=== PATIENT | male | born 1965 | race Caucasian/White ===

== ENCOUNTER 2019-01-22 11:07 | Inpatient (IN) ==
--- NOTE | 2019-01-04 12:54 | PAT Medication Instructions ---
Medication Instructions Date of Service January 04, 2019 Home Medications aspirin 81 mg PO QAM baclofen 20 mg PO DAILY NEEDED duloxetine [Cymbalta] 60 mg PO QAM fenofibrate micronized 200 mg PO QAM ibuprofen 200 mg PO QID NEEDED olmesartan-hydrochlorothiazide 1 tab PO QAM omeprazole magnesium [Prilosec OTC] 40 mg PO QAM pravastatin 40 mg PO QAM sumatriptan succinate [Imitrex] 50 mg PO NEEDED tramadol 100 mg PO Q6H NEEDED ASK your surgeon for instructions aspirin 81 mg PO QAM ibuprofen 200 mg PO QID NEEDED STOP taking 24 hours before surgery fenofibrate micronized 200 mg PO QAM DO NOT take the morning of surgery baclofen 20 mg PO DAILY NEEDED olmesartan-hydrochlorothiazide 1 tab PO QAM sumatriptan succinate [Imitrex] 50 mg PO NEEDED Take morning of surgery With a small sip of water, OTHERWISE NOTHING TO EAT OR DRINK AFTER MIDNIGHT: duloxetine [Cymbalta] 60 mg PO QAM omeprazole magnesium [Prilosec OTC] 40 mg PO QAM pravastatin 40 mg PO QAM tramadol 100 mg PO Q6H NEEDED (if needed; stop 4 hours before surgery) Take evening before surgery baclofen 20 mg PO DAILY NEEDED (if needed) sumatriptan succinate [Imitrex] 50 mg PO NEEDED (if needed) tramadol 100 mg PO Q6H NEEDED (if needed) Other Notes If you have any questions please call us at [phone] or [phone] or [phone] or [phone]
--- NOTE | 2019-01-04 14:27 | Anesthesiology Consultation ---
Date of Service January 04, 2019 Assessment & Plan (1) Encounter for pre-operative examination: Previous glidescope intubation Chart Review Chart Review: Acceptable Risk for Surgery and Patient seen in Pre Admission Testing Consults Requested medical (Dr. Mix (12/31)) Patient was seen by his PCP on 12/31/18 for preoperative assessment. Per note from that visit, "Medically, he is stable for the proposed back surgery". Teaching & Discussion Pre-Anesthesia Teaching/Discussion Notes: Instructed NPO after midnight before surgery, except medications with 15 cc of water. Medication instructions provided according to the PAT guidelines. History Surgery Operation Date: 01/11/19 07:45 Proposed Procedures p L3-L4 Decompression and Fusion, - Rachid Roldan DO s L4-L5 Hardware Removal, Spinal Cord Monitoring - Rachid Roldan DO Height/Weight Height: 6 ft 3 in Weight: 116.9 kg Allergies Allergy/AdvReac Type Severity Reaction Status Date / Time bee venom protein (honey bee) Allergy Severe SWELLING Verified 01/02/19 08:03 REQUIRING ER VISIT Medications Home Medications Medication Instructions Recorded Confirmed Last Taken aspirin 81 mg PO QAM 01/02/19 01/02/19 Unknown baclofen 20 mg PO DAILY PRN 01/02/19 01/02/19 Unknown duloxetine [Cymbalta] 60 mg PO QAM 01/02/19 01/02/19 Unknown fenofibrate micronized 200 mg PO QAM 01/02/19 01/02/19 Unknown ibuprofen 200 mg PO QID PRN 01/02/19 01/02/19 Unknown olmesartan-hydrochlorothiazide 1 tab PO QAM 01/02/19 01/02/19 Unknown omeprazole magnesium [Prilosec OTC] 40 mg PO QAM 01/02/19 01/02/19 Unknown pravastatin 40 mg PO QAM 01/02/19 01/02/19 Unknown sumatriptan succinate [Imitrex] 50 mg PO UD PRN 01/02/19 01/02/19 Unknown tramadol 100 mg PO Q6H PRN 01/02/19 01/02/19 Unknown Past Medical History Medical History Chronic back pain Degenerative disc disease GERD (gastroesophageal reflux disease) Hyperlipidemia Hypertension Migraine Obesity Osteoarthritis Sleep apnea CPAP Exercise / Class Metabolic Activity II 4-5 Yardwork/Stairs/Walk up hill (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 Able to climb FOS. Denies CP or SOB. ) Past Surgical History Surgical History History of appendectomy History of carpal tunnel release RIGHT History of cholecystectomy History of colonoscopy History of eye surgery History of tonsillectomy Previous back surgery FUSION/DECOMPRESSION 03/13/12: Glidescope 4, ETT #8.0 Past Anesthesia History No Hx of Anesthesia Complications and No Family Hx of Anesthesia Complications History of PONV No Hx of PONV and No Hx of Motion Sickness Social History Smoking Status: Never smoker Do You Dip or Chew Tobacco: No Hx Alcohol Use: Yes Alcohol type: beer, wine and hard liquor alcohol intake frequency: a few times a month Hx Substance Use: No substance use type: does not use Substance Use Type Other:: Does have medical marijuana card and would like to start using that Review of Systems Patient denies chest pain, shortness of breath, dyspnea on exertion, cough, wheezing, palpitations. + Joint Pain (Back) +Acid Reflux (controlled with current medications) Physical Exam Vital Signs BP: 137/66 P: 74 R: 16 T: 98.0 SPO2: 97% on RA Constitutional + obese ENMT Thyromental Distance: < 3.5 Finger Breadths (2.5) Mallampati Class: II Neck normal visual inspection, + shortened thyromental distance and + thick neck; neck extension not limited Respiratory normal respiratory effort Auscultation: lungs clear to auscultation bilaterally Cardiovascular Rate/Rhythm: regular rate and regular rhythm Heart Sounds: no murmur Vessels: no carotid bruit Neurologic moves all extremities Psychiatric Orientation: alert and oriented x 3 Testing Laboratory Results 01/04/19 14:41 PT 10.3 Seconds (9.0-12.0) 01/04/19 14:41 INR 1.0 (0.9-1.1) 01/04/19 14:41 APTT 33.0 Seconds (21.0-31.0) H 01/04/19 14:41 Urine Color Yellow 01/04/19 Unknown Urine Appearance Clear (Clear) 01/04/19 Unknown Urine pH 5.5 (4.5-7.5) 01/04/19 Unknown Ur Specific [place] 1.023 (1.000-1.030) 01/04/19 Unknown Urine Protein Negative (Negative) 01/04/19 Unknown Urine Glucose (UA) Negative (Negative) 01/04/19 Unknown Urine Ketones Negative (Negative) 01/04/19 Unknown Urine Nitrite Negative (Negative) 01/04/19 Unknown Ur Leukocyte Esterase Negative (Negative) 01/04/19 Unknown Blood Type A Positive 01/04/19 14:41 Antibody Screen NEGATIVE 01/04/19 14:41 [facility] 12/31/18 SODIUM: 139 POTASSIUM: 3.9 CHLORIDE: 97 CO2: 32 BUN: 14 CREATININE: 1.1 GLUCOSE: 129 H Electrocardiogram Date: 12/31/18 Findings: + NSR @ (71) and + no change from (01/04/14) Chest X-Ray Date: 01/04/19 FINDINGS: PA and lateral chest radiographs are compared to study dated 02/22/2012. The cardiomediastinal silhouette is unremarkable. There is left basilar atelectasis. Streaky airspace opacities are seen in the right middle lobe. There is no pleural effusion or pneumothorax. The bony thorax appears intact. IMPRESSION: Streaky airspace opacities are seen in the right middle lobe. This could present atelectasis versus a mild infectious/inflammatory pneumonitis. Clinical correlation will be required. Radiographic follow-up to resolution is recommended. *Patient is asymptomatic currently* Stress Test Date: 01/15/14 Resting EF: 55-59% The stress echo is negative for inducible ischemia. No arrhythmias. Normal HR and BP response to exercise. Average exercise tolerance. At rest, normal LV chamber size with borderline concentric LVH. Normal LV systolic function without RWMA, EF 55-60%. Normal diastolic function. No significant valvular pathology. The stress EKG response was normal with upsloping ST segment depression noted at peak stress, normalizing by 1 minute in recovery. Baseline ECG was essentially normal. The stress test was terminated due to dyspnea.
--- NOTE | 2019-01-04 15:02 | XRay Report ---
TWO VIEW CHEST CLINICAL HISTORY: Preoperative examination. FINDINGS: PA and lateral chest radiographs are compared to study dated 02/22/2012. The cardiomediastin al silhouette is unremarkable. There is left basilar atelectasis. Streaky airspace opacities are seen in the right middle lobe. There is no pleural effusion or pneumothorax. The bony thorax appears inta ct. IMPRESSION: Streaky airspace opacities are seen in the right middle lobe. This could present atelecta sis versus a mild infectious/inflammatory pneumonitis. Clinical correlation will be required. Radiogr aphic follow-up to resolution is recommended. Electronically signed by: Oneal Silverman M.D. 01/04/2019 3:01 PM
[2019-01-04 15:36] LABS: Appearance Urine Clear (Clear); Bilirubin Urine Negative (Negative); Blood Urine Negative (Negative); Color Urine Yellow; Glucose Urine UA Negative (Negative); Ketones Urine Negative (Negative); Leukocyte Esterase Urine Negative (Negative); Nitrite Urine Negative (Negative); Protein Urine Negative (Negative); Specific Gravity Urine 1.023 (1.000-1.030); Urobilinogen Urine Negative (Negative); pH Urine 5.5 (4.5-7.5)
[2019-01-04 15:37] LABS: Basophils # (auto) 0.04 K/uL (0-0.2); Basophils % (auto) 0.5 %; Eosinophils # (auto) 0.26 K/uL (0-0.5); Eosinophils % (auto) 3.5 %; Hematocrit (blood only) 38.3 % (42-52); Hemoglobin 13.3 g/dL (14.0-18.0); Immature Granulocytes # (auto) 0.07 K/uL (0.00-0.02); Lymphocytes # (auto) 2.09 K/uL (1.2-3.4); Lymphocytes % (auto) 28.4 %; Mean Corpuscular Hemoglobin 30.5 pg (25-34); Mean Corpuscular Hgb Conc 34.7 g/dL (32-36); Mean Corpuscular Volume 87.8 fL (80-100); Mean Platelet Volume 9.4 fL (7.4-10.4); Monocytes # (auto) 0.71 K/uL (0.11-0.59); Monocytes % (auto) 9.6 %; Neutrophils # (auto) 4.19 K/uL (1.4-6.5); Platelet Count 425 K/uL (130-400); RDW Coefficient of Variation 12.1 % (11.5-14.5); RDW Standard Deviation 39.2 fL (36.4-46.3); Red Blood Count 4.36 M/uL (4.7-6.1); White Blood Count 7.36 K/uL (4.8-10.8)
[2019-01-04 15:52] LABS: Partial Thromboplastin Ratio 1.2; Prothrombin Time 10.3 Seconds (9.0-12.0)
[~2019-01-22 11:07] MED LIST: ACETAMINOPHEN 500 MG TAB PO SCH; CEFAZOLIN 2000MG 2,000 MG/15 ML SYR IV SCH; CeleBREX 200 MG CAP PO SCH; GABAPENTIN 900 MG DOSE PO SCH; LR 500ML BOLUS, THEN 15ML/HR IV SCH
[2019-01-22] MEDS ORDERED: TRAMADOL HCL 50 MG TABLET PO STA (13:06)
[2019-01-22] MEDS ORDERED: TRAMADOL HCL 50 MG TABLET ONE (13:09)
[2019-01-22] MEDS ORDERED: ONDANSETRON INJ 2 MG/ML 2 ML VIAL IV PRN ×2 (13:26→18:42)
[2019-01-22] MEDS ORDERED: PROMETHAZINE HCL 6.25 MG in SODIUM CHLORIDE 0.9% 50 ML IV PRN (13:26)
[2019-01-22] MEDS ORDERED: ATROPINE SULFATE 0.1 MG/ML 10ML SYR IV PRN (13:26)
[2019-01-22] MEDS ORDERED: ePHEDrine sulfate 50 MG/ML AMP IV PRN (13:26)
[2019-01-22] MEDS ORDERED: LIDOCAINE HCL 2% 2 ML VIAL/AMP(20MG/ML) INFIL ONE (14:08)
[2019-01-22] MEDS ORDERED: MIDAZOLAM HCL 1 MG/ML 2ML VIAL ONE (14:08)
[2019-01-22] MEDS ORDERED: GLYCOPYRROLATE 0.2 MG/ML VIAL ONE (14:08)
[2019-01-22] MEDS ORDERED: ONDANSETRON INJ 2 MG/ML 2 ML VIAL ONE (14:08)
[2019-01-22] MEDS ORDERED: DEXAMETHASONE SOD INJ 4 MG/ML VIAL ONE ×2 (14:08→15:27)
[2019-01-22] MEDS ORDERED: fentaNYL citrate 100 MCG/2 ML VIAL ONE ×2 (14:08)
[2019-01-22] MEDS ORDERED: PROPOFOL IV EMULSION 10 MG/ML 20 ML VIAL IV ONE (14:08)
[2019-01-22] MEDS ORDERED: NEOSTIGMINE METHYLSULFATE 1 MG/ML 10ML VIAL ONE (14:08)
--- NOTE | 2019-01-22 14:34 | History & Physical Bridge Note ---
Date of Service January 22, 2019 History & Physical Bridge Note I have examined the patient, reviewed the History & Physical and in the interval since the performance of the History & Physical I have noted the following changes of clinical significance: no changes noted
--- NOTE | 2019-01-22 14:34 | History & Physical Report ---
Date of Service January 22, 2019 Assessment & Plan (1) Spinal stenosis, lumbar region with neurogenic claudication: Decompression and fusion L3-L4 hardware removal L4-L5 Present on Admission?: Yes History of Present Illness Chief Complaint: Back and leg pain Primary Care Provider: Jeffrey Mix MD To co that presents with chronic persistent back and leg pain. After failing extensive course of nonoperative care is here for surgical intervention. Allergies Allergy/AdvReac Type Severity Reaction Status Date / Time bee venom protein (honey bee) Allergy Severe SWELLING Verified 01/22/19 11:47 REQUIRING ER VISIT Home Medications Home Medications Medication Instructions Recorded Confirmed Type aspirin 81 mg PO QAM 01/02/19 01/22/19 History baclofen 20 mg PO DAILY PRN 01/02/19 01/22/19 History duloxetine [Cymbalta] 60 mg PO QAM 01/02/19 01/22/19 History fenofibrate micronized 200 mg PO QAM 01/02/19 01/22/19 History ibuprofen 200 mg PO QID PRN 01/02/19 01/22/19 History olmesartan-hydrochlorothiazide 1 tab PO QAM 01/02/19 01/22/19 History omeprazole magnesium [Prilosec OTC] 40 mg PO QAM 01/02/19 01/22/19 History pravastatin 40 mg PO QAM 01/02/19 01/22/19 History sumatriptan succinate [Imitrex] 50 mg PO UD PRN 01/02/19 01/22/19 History tramadol 100 mg PO Q6H PRN 01/02/19 01/22/19 History Past Med/Surg History Social History Preferred Language: Surinamese Communication Ability: Effective 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 Results & Data Vital Signs (Past 12 Hours) Vital Signs Temp Pulse Resp BP Pulse Ox 01/22/19 11:41 37.1 C 65 20 165/90 H 95
[2019-01-22] MEDS ORDERED: BUPIVACAINE/EPINEPHRINE 0.5% MPF 1:200,000 30 ML VIAL ONE (14:43)
[2019-01-22] MEDS ORDERED: BACITRACIN INJ 50,000 UNIT VIAL ONE ×2 (14:43→14:44)
[2019-01-22] MEDS ORDERED: ROCURONIUM BROMIDE 10 MG/ML 5 ML VIAL ONE (15:35)
[2019-01-22] MEDS ORDERED: HYDROmorphone INJ 2 MG/ML SYR/VIAL ONE (15:35)
[2019-01-22] MEDS ORDERED: FLOSEAL HEMOSTATIC MATRIX 10ML TOP ONE (15:44)
[2019-01-22] MEDS ORDERED: ePHEDrine sulfate 50 MG/ML SYR ONE (16:30)
--- NOTE | 2019-01-22 17:05 | Fluoroscopy Report ---
FL lumbar spine 2-3V CLINICAL HISTORY: 53 years-old Male presenting with L4-L5 HARDWARE REMOVAL, L3-L4 DECOMPRESSION AND F USION. TECHNIQUE: 2 fluoroscopic image(s) recorded as part of an intraoperative procedure. COMPARISON: CT from 05/26/2011 and plain radiograph from 03/13/2012. FINDINGS/IMPRESSION: Posterior bilateral transpedicular Schoenrock fixation likely of L3-4 with laminectomy defects and in terbody spacer. Interbody spacer is also noted at the more inferior level, which is likely L4-5. Please see surgical report for further details. Fluoroscopy dosage (mGy): 10.20. Fluoroscopy time: 10.6 seconds. Number or time of high level fluoroscopy (HLF), digital spot, or digital subtraction images: 0. Electronically signed by: Jaskaran Lauren M.D. 01/22/2019 5:04 PM
--- NOTE | 2019-01-22 17:08 | Operative Report ---
Post Operative Report Pre & Post Diagnosis Operation Date: 01/22/19 13:05 Pre-Op Diagnosis: Spinal Stenosis, Lumbar Region with Neurogenic Claudication Post-Op Diagnosis: Spinal Stenosis, Lumbar Region with Neurogenic Claudication Procedure Operation Date: 01/22/19 13:05 Actual Procedures #1 removal of posterior instrumentation L4-L5 per #2 expiration of fusion L4-L5. #3 decompression with bilateral medial facetectomies foraminotomies L3-4. #4 posterior spinal fusion L3-4. #5 placement posterior instrumentation L3-4. #6 interbody fusion L3-4. #7 placement of peek cage 12 x 26 mm at L3-4. #8 placement of local autograft in the posterior lateral gutters. #9 placement infuse collagen sponge master graft in the posterior lateral gutters and ostial amp and interbody space. Surgeon Rachid Roldan, DO Lining Baster None Estimated Blood Loss 250 Findings See Below The patient is 6 foot 3 inches tall weighing over 117 kg with a BMI in excess of 32. The patient's significant body habitus did create marked increased and technical difficulty adding at least 25% increase in operative time. Specimens None Indications This is a 53-year-old male well-known to me that presents with above-mentioned diagnosis after failing extensive course of nonoperative care elected to under go the above-mentioned procedure. Description of Procedure Patient was met with identified and informed consent obtained. Patient was then taken to the operative suite underwent intubation placed in a prone position on the Grayson table on top of the Mohsen frame. All bony prominences well-padded eyes inspected to ensure no external pressure placed upon the peer at this point the lumbar spine was prepped and draped in normal sterile fashion. Sharp dissection with the assistance of Bovie cautery was performed down to and exposing the lamina transverse processes of L3 and instrumentation at L4 and L5 bilaterally. I then proceed remove the hardware bilaterally exploring the fusion mass noting it to be intact. Then performed a complete laminectomy of L3 including bilateral medial facetectomies foraminotomies addressing severe stenosis. Pedicle screws were then placed in L3 and L4 bilaterally with assistance of fluoroscopy the purposes elle placed. By way of a transforaminal approach on the right a complete discectomy of L3-4 was performed endplates curetted to subcortical bleeding bone and a 12 x 26 mm peek cage filled with ostium bone graft tapped in position. The rods were then compressed locked in final position bilaterally. The transverse processes of L3 and L4 burred to subcortical bleeding bone. Infuse collagen sponge mass graft local autograft placed in the posterior lateral gutters. 15 round AIDEN drain inserted. The incision was then closed with 1 Vicryl in the fascia 2-0 Vicryl subcutaneous and a 4 Monocryl for final skin closure. Steri-Strips dressings placed. Patient will continue PACU stable condition. Please note spinal cord monitoring was utilized that the procedure no changes were noted. I attest to the content of the Intraoperative Record and any orders documented therein. Any exceptions are noted below.
[2019-01-22] MEDS: fentaNYL citrate 100 MCG/2 ML VIAL IV PRN ×4 (17:34→17:49)
[2019-01-22] MEDS: HYDROmorphone INJ 2 MG/ML SYR/VIAL IV PRN ×2 (17:58→18:05)
[2019-01-22] MEDS ORDERED: SOD PHOSPHATE/SOD BIPHOSPHATE ENEMA 132 ML BTL PR PRN (18:42)
[2019-01-22] MEDS ORDERED: PROMETHAZINE HCL 12.5 MG in SODIUM CHLORIDE 0.9% 50 ML IV PRN (18:42)
[2019-01-22] MEDS ORDERED: METOCLOPRAMIDE HCL INJ 5 MG/ML 2 ML VIAL IV PRN (18:42)
[2019-01-22] MEDS ORDERED: NALOXONE HCL 0.4 MG/1 ML VIAL/CARP IV PRN (18:42)
[2019-01-22] MEDS ORDERED: LORazepam 0.5 MG TAB PO PRN (18:42)
[2019-01-22] MEDS ORDERED: DO NOT ADMINISTER FLU VACCINE PRN (18:42)
[2019-01-22] MEDS ORDERED: ALUMINUM/MAGNESIUM SUSP 30 ML UDC PO PRN (18:42)
[2019-01-22] MEDS ORDERED: MAGNESIUM HYDROXIDE SUSP 30 ML UDC PO PRN (18:42)
[2019-01-22] MEDS ORDERED: LORazepam 0.5 MG/1 ML VIAL IV PRN (18:42)
[2019-01-22] MEDS ORDERED: BISACODYL 10 MG SUPP PR PRN (18:42)
[2019-01-22] MEDS ORDERED: SUMAtriptan succinate 50 MG TAB PO PRN (18:42)
[2019-01-22] MEDS ORDERED: ACETAMINOPHEN 500 MG TAB PO PRN (18:42)
[2019-01-22] MEDS ORDERED: ACETAMINOPHEN 1,000 MG/100 ML VIAL IV PRN (18:42)
[2019-01-22] MEDS ORDERED: ONDANSETRON 4 MG TAB PO PRN (18:42)
[2019-01-22] MEDS ORDERED: FAMOTIDINE 20 MG TAB PO PRN (18:42)
[2019-01-22] MEDS ORDERED: LACTATED RINGER'S 1,000 ML IV SCH (18:42)
[2019-01-22] MEDS ORDERED: DO NOT ADMINISTER PNEUMOCOCCAL VACCINE PRN (18:42)
--- NOTE | 2019-01-22 18:44 | Anesthesiology Progress Note ---
Date of Service January 22, 2019 Anesthesia Post Procedure Vital Signs Vital Signs: Temp Pulse Pulse Resp BP Pulse Ox 01/22/19 18:15 36.8 C 94 H 12 152/87 H 96 01/22/19 18:05 90 12 154/83 H 97 01/22/19 17:55 87 12 154/77 H 96 01/22/19 17:45 90 12 157/89 H 95 01/22/19 17:35 86 12 159/87 H 96 01/22/19 17:25 89 12 147/73 H 97 01/22/19 17:18 36.7 C 85 13 158/86 H 95 01/22/19 11:41 37.1 C 65 20 165/90 H 95 Pain Intensity Lower Back: Pain Intensity: 4 Transfer of Care Handoff Completed per policy Notes Mental Status: alert / awake / arousable Patient Amnestic to Procedure: Yes Nausea / Vomiting: adequately controlled Pain: adequately controlled Airway Patency, RR, SpO2: stable & adequate BP & HR: stable & adequate Hydration State: stable & adequate Anesthetic Complications: no major complications apparent
[2019-01-22] MEDS: HYDROmorphone INJ 0.5 MG/0.5 ML SYR IV PRN (19:06)
[2019-01-22] MEDS: DOCUSATE SODIUM/SENNA 50/8.6MG TAB PO SCH (20:31)
[2019-01-22] MEDS: CEFAZOLIN 2000MG 2,000 MG/15 ML SYR IV SCH (20:53)
[2019-01-22] MEDS: KETOROLAC 30 MG/ML VIAL IV SCH (20:53)
[2019-01-22] MEDS: OXYCODONE HCL IR 5 MG TAB (IMMEDIATE RELEASE) PO PRN (21:23)
[2019-01-23] MEDS: KETOROLAC 30 MG/ML VIAL IV SCH ×3 (00:59→14:27)
[2019-01-23] MEDS: OXYCODONE HCL IR 5 MG TAB (IMMEDIATE RELEASE) PO PRN ×4 (01:49→15:21)
[2019-01-23] MEDS: CEFAZOLIN 2000MG 2,000 MG/15 ML SYR IV SCH (06:00)
[2019-01-23] MEDS: POLYETHYLENE (MIRALAX) 17 GM PACK PO SCH ×4 (06:00→23:18)
[2019-01-23 06:25] LABS: Basophils # (auto) 0.01 K/uL (0-0.2); Basophils % (auto) 0.1 %; Hematocrit (blood only) 36.1 % (42-52); Hemoglobin 12.6 g/dL (14.0-18.0); Immature Granulocytes # (auto) 0.04 K/uL (0.00-0.02); Immature Granulocytes % (auto) 0.3 %; Lymphocytes # (auto) 1.23 K/uL (1.2-3.4); Lymphocytes % (auto) 9.8 %; Mean Corpuscular Hemoglobin 30.1 pg (25-34); Mean Corpuscular Hgb Conc 34.9 g/dL (32-36); Mean Corpuscular Volume 86.4 fL (80-100); Mean Platelet Volume 9.6 fL (7.4-10.4); Monocytes # (auto) 0.86 K/uL (0.11-0.59); Monocytes % (auto) 6.9 %; Neutrophils # (auto) 10.41 K/uL (1.4-6.5); Neutrophils % (auto) 82.9 %; Platelet Count 314 K/uL (130-400); RDW Coefficient of Variation 12.4 % (11.5-14.5); RDW Standard Deviation 39.2 fL (36.4-46.3); Red Blood Count 4.18 M/uL (4.7-6.1); White Blood Count 12.55 K/uL (4.8-10.8)
[2019-01-23 07:02] LABS: BUN Creatinine Ratio 17.1 (10-20); Calcium 8.6 mg/dl (8.5-10.1); Creatinine Clr Calc Pharmacy 119.4 ml/min; Est GFR (African American) 99.8; Est GFR (Non-African American) 86.2; Potassium 3.7 mmol/L (3.5-5.1)
--- NOTE | 2019-01-23 08:28 | Anesthesiology Progress Note ---
Date of Service January 23, 2019 Anesthesia Post Procedure Vital Signs Vital Signs: Temp Pulse Pulse Resp BP BP Pulse Ox 01/23/19 08:00 36.6 C 60 16 146/72 H 97 01/23/19 04:13 36.5 C 71 18 143/71 H 96 01/22/19 23:46 36.9 C 88 18 139/53 L 92 01/22/19 21:36 36.5 C 82 16 134/73 94 01/22/19 20:37 36.6 C 88 16 144/73 H 91 01/22/19 19:37 36.5 C 84 16 153/74 H 97 01/22/19 19:12 36.7 C 88 16 143/80 H 96 01/22/19 18:47 36.4 C L 92 H 14 155/77 H 96 01/22/19 18:15 36.8 C 94 H 12 152/87 H 96 01/22/19 18:05 90 12 154/83 H 97 01/22/19 17:55 87 12 154/77 H 96 01/22/19 17:45 90 12 157/89 H 95 01/22/19 17:35 86 12 159/87 H 96 01/22/19 17:25 89 12 147/73 H 97 01/22/19 17:18 36.7 C 85 13 158/86 H 95 01/22/19 11:41 37.1 C 65 20 165/90 H 95 Pain Intensity Lower Back: Pain Intensity: 6 Notes Mental Status: alert / awake / arousable and participated in evaluation Patient Amnestic to Procedure: Yes Nausea / Vomiting: adequately controlled Pain: adequately controlled Airway Patency, RR, SpO2: stable & adequate BP & HR: stable & adequate Hydration State: stable & adequate Anesthetic Complications: no major complications apparent and Pt Satisfied with anesthetic care
[2019-01-23] MEDS: TRAMADOL HCL 50 MG TABLET PO PRN (08:31)
[2019-01-23] MEDS: hydroCHLOROthiazide 25 MG TAB PO SCH (08:33)
[2019-01-23] MEDS: OLMESARTAN MEDOXOMIL 40 MG TAB PO SCH (08:33)
[2019-01-23] MEDS: PRAVASTATIN SOD 40 MG TAB PO SCH (08:33)
[2019-01-23] MEDS: FENOFIBRATE NANOCRYSTALLIZED 145 MG TABLET PO SCH (08:33)
[2019-01-23] MEDS: ASPIRIN 81 MG ECTAB PO SCH (08:34)
[2019-01-23] MEDS: DULOXETINE HCL 60 MG CAP PO SCH (08:34)
[2019-01-23] MEDS: PANTOprazole 40 MG TAB PO SCH (08:34)
--- NOTE | 2019-01-23 09:54 | Orthopedic Progress Note ---
Date of Service January 23, 2019 Assessment & Plan (1) Spinal stenosis, lumbar region with neurogenic claudication: At this time we will continue physical therapy monitor his AIDEN output anticipate discharge home Monday. Present on Admission?: Yes Subjective Patient's back pain is controlled leg symptoms markedly improved. Physical Exam Physical Exam: Patient is good strength testing appears very comfortable. Results & Data Vital Signs (Past 12 Hours) Vital Signs Temp Pulse Resp BP Pulse Ox 01/23/19 08:00 36.6 C 60 16 146/72 H 97 01/23/19 04:13 36.5 C 71 18 143/71 H 96 01/22/19 23:46 36.9 C 88 18 139/53 L 92
[2019-01-23] MEDS: BACLOFEN 20 MG TAB PO PRN (13:33)
[2019-01-23] MEDS: DOCUSATE SODIUM/SENNA 50/8.6MG TAB PO SCH (20:17)
[2019-01-23] MEDS: HYDROmorphone INJ 0.5 MG/0.5 ML SYR IV PRN ×2 (20:17→20:42)
[2019-01-24] MEDS: OXYCODONE HCL IR 5 MG TAB (IMMEDIATE RELEASE) PO PRN ×3 (04:37→16:21)
[2019-01-24] MEDS: POLYETHYLENE (MIRALAX) 17 GM PACK PO SCH (05:30)
[2019-01-24] MEDS: FENOFIBRATE NANOCRYSTALLIZED 145 MG TABLET PO SCH (08:42)
[2019-01-24] MEDS: PRAVASTATIN SOD 40 MG TAB PO SCH (08:42)
[2019-01-24] MEDS: ASPIRIN 81 MG ECTAB PO SCH (08:42)
[2019-01-24] MEDS: OLMESARTAN MEDOXOMIL 40 MG TAB PO SCH (08:42)
[2019-01-24] MEDS: DULOXETINE HCL 60 MG CAP PO SCH (08:42)
[2019-01-24] MEDS: hydroCHLOROthiazide 25 MG TAB PO SCH (08:42)
[2019-01-24] MEDS: PANTOprazole 40 MG TAB PO SCH (08:42)
--- NOTE | 2019-01-24 08:44 | Orthopedic Progress Note ---
Date of Service January 24, 2019 Assessment & Plan (1) Spinal stenosis, lumbar region with neurogenic claudication: This time we will continue physical therapy anticipate discharge home tomorrow. Present on Admission?: Yes Subjective Patient's back pain is controlled leg symptoms markedly improved. Still noting some numbness in the right lower extremity. Physical Exam Physical Exam: Patient is standing and ambulating reasonably well. Is good strength testing. Appears comfortable. Results & Data Vital Signs (Past 12 Hours) Vital Signs Temp Pulse Resp BP Pulse Ox 01/24/19 07:47 37.0 C 76 16 141/74 H 99 01/23/19 23:29 36.8 C 71 18 123/73 97
[2019-01-24] MEDS: TRAMADOL HCL 50 MG TABLET PO PRN ×2 (12:40→21:01)
[2019-01-24 16:17] VITALS: O2SAT 93
[2019-01-24] MEDS: DOCUSATE SODIUM/SENNA 50/8.6MG TAB PO SCH (20:58)
[2019-01-24] MEDS: BACLOFEN 20 MG TAB PO PRN (22:05)
[2019-01-25] MEDS: OXYCODONE HCL IR 5 MG TAB (IMMEDIATE RELEASE) PO PRN ×2 (04:11→08:12)
[2019-01-25 06:43] VITALS: TEMP 98.4
[2019-01-25] MEDS: FENOFIBRATE NANOCRYSTALLIZED 145 MG TABLET PO SCH (08:14)
[2019-01-25] MEDS: PANTOprazole 40 MG TAB PO SCH (08:14)
[2019-01-25] MEDS: PRAVASTATIN SOD 40 MG TAB PO SCH (08:14)
[2019-01-25] MEDS: DULOXETINE HCL 60 MG CAP PO SCH (08:14)
[2019-01-25] MEDS: ASPIRIN 81 MG ECTAB PO SCH (08:15)
[2019-01-25 08:16] VITALS: BP 138/79; PULSE 76
[2019-01-25] MEDS: OLMESARTAN MEDOXOMIL 40 MG TAB PO SCH (08:17)
[2019-01-25] MEDS: hydroCHLOROthiazide 25 MG TAB PO SCH (08:17)
--- NOTE | 2019-01-25 12:26 | Discharge Summary ---
Date of Service January 25, 2019 Admission HPI Per Admitting Provider To dc that presents with chronic persistent back and leg pain. After failing extensive course of nonoperative care is here for surgical intervention. Principal Diagnosis Lumbar spinal stenosis with neurogenic claudication Discharge Data Allergies Allergy/AdvReac Type Severity Reaction Status Date / Time bee venom protein (honey bee) Allergy Severe SWELLING Verified 01/22/19 11:47 REQUIRING ER VISIT Consultations 01/22/19 18:42 Consult Case Management - Discharge Planning Routine Procedures Performed Operation Date: 01/22/19 13:05 Actual Procedures p L4-L5 Hardware Removal; L3-L4 Decompression and Fusion, Spinal Cord Monitoring(Not Applicable) - Rachid Roldan DO Ordered Studies 01/22/19 07:00 FL fluoroscopy <1hr Routine FL lumbar spine 2-3V Routine Hospital Course (1) Spinal stenosis, lumbar region with neurogenic claudication: Patient underwent lumbar decompression fusion tolerated as well as taken to the orthopedic floor postoperative. Postop day 1 his symptoms are improved he was up and ambulating progressed to postop day #2. Postop day #3 his AIDEN drainage decreased appropriately. He is comfortable. Subsequent discharge home. Discharge orders instructions from the chart for further review. Total Time Total Time Spent Total Time Spent (In Minutes): 20 minutes Discharge Plan Discharge Items Patient Disposition: Home - Self-Care Reason For Visit: Spinal Stenosis, Lumbar Region with Neurogenic Cla Discharge Diagnosis: Lumbar spinal stenosis with neurogenic claudication Discharge Goals: Decrease discomfort Activity: Per 'Additional Instructions' section Non-emergency contact: Primary Care Provider Call non-emergency contact if: you have any medication questions Follow-up/Referrals: Jeffrey iMx MD [Primary Care Provider] - Diet: Regular Addtl Provider Instructions: ACTIVITY RECOMMENDATIONS: SELF CARE INSTRUCTIONS AFTER THORACIC/LUMBAR FUSIONS 1. You may walk to your tolerance. It is good exercise for your legs and back. Expect some back and intermittent leg aches and pains. 2. You may perform "counter-top" level activities (make a sandwich, channing with a project, etc.). 3. No bending or lifting of more than 10 pounds or back twisting of any nature (roll like a log when turning in bed). 4. You may ride in a car for 20-30 minutes at a time. No driving until after your first visit with your doctor. 5. Frequent changes of position and restricting sitting to 30 minutes at a time will help limit the amount of back spasms and stiffness you may experience. 6. You may discontinue the use of ambulatory aids (cane, crutches, etc.) once your strength and confidence allow. 7. You may gas booster engineer the shower and let water strike your incision when you arrive home at least once daily. Do not take a tub bath, sit in a hot tub or go into a swimming pool until after your first recheck in the office. SPECIAL CARE INSTRUCTIONS: VERY IMPORTANT TO READ AND REVIEW A. Your surgical incision has been closed with a cosmetic suture under the skin that will dissolve in about 6 weeks. In 14 days, you can use a pair of clean scissors and cut the suture that is left outside of the skin at the ends of your incision. 1. The small skin tapes can be removed 7 days after surgery if they have not fallen off by that point. 2. You may keep the wound open to air as much as possible to promote healing after post-op day number 5 unless told otherwise by your doctor. 3. If you think the wound looks like it is becoming infected (redness or worsening drainage) and/or you are experiencing fever, chill or worsening back pain and muscle spasms, contact the office so that we may evaluate you as soon as possible. B. Complications are uncommon, but please contact us if you have any signs or symptoms of: 1. wound infection (fever higher than 102.5 degrees F, redness, separation of wound, drainage, or increasing pain from the incision) 2. blood clots in legs (pain, swelling, redness and warmth in legs) 3. urinary tract infection (fever higher than 102.5 degrees F, burning upon urination or increased frequency of urination) 4. nerve problems (inability to walk on your toes or heels, numbness, loss of bowel or bladder control) 5. any other symptoms that concern you C. Please call the office at if you have any concerns or questions about your operation or recovery. D. No smoking! Smoking drastically decreases the chance of a solid fusion. E. Do not take any anti-inflammatory medications (Indocin, Advil, Motrin, Aspirin, Naprosyn, etc.) as these may inhibit the chance of a solid fusion. T ylenol is okay to take for pain. MANAGING PAIN AFTER SPINAL SURGERY 1. Narcotic medication is intended for short-term use and will be provided for surgical pain. Surgical pain usually lasts for a period of 4-6 weeks. Narcotic medication includes Percocet, Vicodin, Darvocet, Tylenol #3 or Lortab. 2. Longer-term pain is more appropriately treated with non-narcotic medication such as Tylenol ES. 3. Muscle spasm is not appropriately treated with narcotics. Muscle relaxers such as Soma, Flexeril or Skelaxin can be used along with Tylenol ES. 4. Remember that we all live with some "aches and pains". This is not unusual or uncommon after an injury or as we get older. a. Back pain is expected and may include muscle spasms for 4 to 6 weeks after surgery. The pain should gradually improve. If the pain worsens for no apparent reason, please contact the office. b. Intermittent leg pain may also be experienced and should not be concerned about unless it worsens for no apparent reason. If so, please contact the office. 5. We will provide appropriate medication within the normal guidelines of their prescribed use. We will also be very cautious and aware of potential abuse and extended duration of patients' medication needs. a. Pain medications are for your comfort and to assist with sleep and rest so that the tissue can heal. They are not provided in order to return to normal activity and should not be used through the day. To do so or worsening pain at night can result from ongoing tissue damage and development of tolerance to the prescribed medicine. 6. Please allow 2-3 days to process refills. Prescriptions will not be mailed but must be picked up at the office. FOLLOW UP VISIT: Keep your scheduled follow-up appointment. Any questions, please call the office at . Prescriptions: New tramadol 50 mg Tablet 50 mg PO Q4H PRN (Reason: Pain, Moderate) Qty: 30 RF: 0 oxycodone 5 mg Tablet 5 mg PO Q4H PRN (Reason: Pain, Severe) Qty: 30 RF: 0 Continued pravastatin 40 mg Tablet 40 mg PO QAM RF: 0 sumatriptan succinate [Imitrex] 50 mg Tablet 50 mg PO UD PRN (Reason: Migraine Headache) RF: 0 fenofibrate micronized 200 mg Capsule 200 mg PO QAM RF: 0 olmesartan-hydrochlorothiazide 40-25 mg Tablet 1 tab PO QAM RF: 0 Prilosec OTC 20 mg Tablet,Delayed Release (Dr/Ec) 40 mg PO QAM RF: 0 duloxetine [Cymbalta] 60 mg Capsule,Delayed Release(Dr/Ec) 60 mg PO QAM RF: 0 aspirin 81 mg Tablet,Delayed Release (Dr/Ec) 81 mg PO QAM RF: 0 tramadol 50 mg Tablet 100 mg PO Q6H PRN (Reason: Pain) RF: 0 baclofen 20 mg Tablet 20 mg PO DAILY PRN (Reason: Muscle Spasm) RF: 0 Discontinued ibuprofen 200 mg Tablet 200 mg PO QID PRN (Reason: Pain) RF: 0 Stand-Alone Forms: [facility], [facility] Krames/Other Patient Handouts: Surgery Prevent DVT After Discharge Orders: Discharge Order (Routine); Ordered 01/25/19 Ordered By: Rachid Roldan Admission Data Admit Date/Time: 01/22/19 17:11 Attending Provider: Rachid Roldan Admit Provider: Rachid Roldan Primary Care Provider: Jeffrey Mix Service: Surgical Services Other Interventions: Discharge Summary Assessment (RN) Last Done: 01/25/19 10:11 DC Date/Time DO NOT enter until pt leaves facility: 01/25/19 12:04
== END 2019-01-25 12:04 | disposition home or self-care (01) | DRG 455 ==
LOC: ASU 11:07 → 3E 17:11

== ENCOUNTER 2022-12-15 12:06 | Observation (INO) ==
[2022-12-15] MEDS ORDERED: SODIUM CHLORIDE 0.9% 500 ML IV STA (12:20)
[2022-12-15] MEDS ORDERED: ONDANSETRON INJ 2 MG/ML 2 ML VIAL IV STA ×2 (12:20→12:36)
[2022-12-15] MEDS ORDERED: KETOROLAC TROMETHAMINE 15 MG/ML VIAL IV STA (12:24)
[2022-12-15] MEDS ORDERED: MoRPHine SULFATE 10 MG/ML CARP/VIAL IV STA ×3 (12:36→15:05)
[2022-12-15] MEDS ORDERED: SODIUM CHLORIDE 0.9% 1000ML 2,000 ML IV ONE (12:36)
--- NOTE | 2022-12-15 12:38 | Emergency Department Note ---
Impression & Plan Renal colic, Abdominal pain, Hydronephrosis ED Provider Note NAME: RAMOS MARINELLI AGE: 57 SEX: M : 1965 ARRIVES VIA: Walk-In INFORMANT: Patient ED PROVIDER(S): Spenser Foster DO CHIEF COMPLAINT: abdominal pain HPI: Patient is a 57-year-old male who presents to the ER for left lower quadrant abdominal pain which started around 9 AM. He notes it is severe and a 10 out of 10. He notes he cannot stop sweating and vomiting. He denies any headache or change in vision. No chest pain or shortness of breath. He has a history of a previous cholecystectomy and appendectomy. Does also have a spinal stimulator in place. No dysuria, urgency, or frequency. No weakness or numbness in the arms or legs. No other exacerbating or remitting factors. He has never had this before. PAST MEDICAL HISTORY:See Below PAST SURGICAL HISTORY:See Below FAMILY HISTORY:See Below SOCIAL HISTORY:See Below HOME MEDICATIONS:See Below ALLERGIES:See Below VITALS:See Below PHYSICAL EXAMINATION: GENERAL: Sitting up in chair, diaphoretic, significant distress, ill-appearing EYE EXAM: normal conjunctiva. OROPHARYNX:mucous membranes are moist LUNGS: Clear to auscultation. Normal chest wall mechanics HEART: no murmurs, S1 normal and S2 normal ABDOMEN: abdomen soft,tenderness in left lower quadrant, normo-active bowel sounds, no masses, no rebound or guarding. BACK: Back is symmetrical on inspection and there is no deformity, no midline tenderness, no CVA tenderness. SKIN: no rashes and no bruising UPPER EXTREMITIES: upper extremities are grossly normal. LOWER EXTREMITIES: No pitting edema. NEURO EXAM: Normal sensorium, cranial nerves II-XII grossly intact, normal speech, no gross weakness of arms, no gross weakness of legs. MEDICAL DECISION MAKING: Patient is a 57-year-old male who presents ER for abdominal/flank pain. IV was established blood work was obtained. Labs show leukocytosis of 14,000. No significant anemia. BMP with mild metabolic Acidosis with a CO2 of 20. Glucose at 129. LFTs bilirubin was unremarkable. Lipase was normal. UA was without infection but did have hematuria. CT abdomen pelvis does show hydronephrosis with a renal colic. Patient was given IV fluids and multiple rounds of IV narcotics including morphine x2 as well as Dilaudid. Still had persistent pain. Discussed case with Dr. Geo Sumner for further evaluation management and treatment. Triage Nursing notes reviewed. Limited review of prior medical records performed Vital Signs: reviewed and remarkable for no significant abnormalities Differential diagnosis: Differential diagnoses includes but is not limited to gastritis, peptic ulcer disease, GERD, gallbladder disease, pancreatitis, small bowel obstruction, appendicitis, diverticulitis, hernia, urinary tract infection, torsion, perforation, trauma, infectious. ER treatment provided: See below Diagnostics interpreted by me include EKG and cardiac monitoring as listed below: -Cardiac Monitoring: An order was placed for continuous cardiac monitoring. The monitor shows a rate of 80 with sinus rhythm. -ECG: none -Laboratory studies:Interpreted by me as stated above in MDM and shown below. Imaging studies: Xrays: As interpreted by me:none CTs show: CT abdomen pelvis per my read shows an obstructing renal stone CT abdomen pelvis shows proximal ureteral stone with hydronephrosis Consultation(s): As described in MDM Procedures:none Critical Care: None Past Med/Surg History Medical History Adverse clinical event associated with anesthesia Anxiety Degenerative disc disease Depression GERD (gastroesophageal reflux disease) Hyperlipidemia Hypertension Hypertriglyceridemia without hypercholesterolemia Impingement syndrome, shoulder, left Migraine Nail deformity Neuropathy of right lower extremity Obesity Obstructive sleep apnea Osteoarthritis Pre-diabetes Resistant hypertension Sacroiliitis Spinal stenosis, lumbar region with neurogenic claudication Surgical History History of appendectomy History of carpal tunnel release History of cholecystectomy History of colonoscopy History of eye surgery History of tonsillectomy Hx of foot surgery Previous back surgery SI (sacroiliac) joint dysfunction Family History Father Cancer Hypertension Colorectal cancer, Onset Age: 60 Myocardial infarction, Onset Age: 50 Prostate cancer, Onset Age: 60 Heart disease Mother Hypertension Diabetes Brother Hypertension Sister Hypertension Denies family history of Ovarian cancer Breast cancer Social History Smoking Status: Never smoker Second Hand Exposure: No; Do You Dip or Chew Tobacco: No; Hx Alcohol Use: Yes Alcohol type: beer Hx Substance Use: Yes Last Used Substance Other:: medical marijuanna vape Substance Use Type Other:: medical card > vapes daily Preferred Language: Lithuanian Communication Ability: Effective Visual Impairment: No Limitations Hearing Ability: Hard of Hearing Evs Tech Required: No Beliefs That Will Affect Care: None marital status: Current Living Situation: Spouse current occupational status: disabled current occupation: lieutenant at [employer] Feels Safe at Home: Yes Childhood Exposure to Second-Hand Smoke: Yes Diet: regular caffeine: Yes (coffee) during the past year weight has: increased > 10 lbs Dental Care, Regularly: Yes Physical Activity Frequency: Other Physical Activity Frequency Comment: limited by physical condition Seatbelt Use: always Sunscreen Use: Yes Assistive Devices: Glasses Allergies Allergies Allergy/AdvReac Type Severity Reaction Status Date / Time bee venom protein (honey bee) Allergy Severe SOB, Verified 12/15/22 13:51 swelling acetaminophen [From Percocet] AdvReac Intermediate GI Upset Verified 12/15/22 13:51 fenofibrate AdvReac Intermediate Muscle Pain Verified 12/15/22 13:51 oxycodone [From Percocet] AdvReac Intermediate GI Upset Verified 12/15/22 13:51 Home Meds Home Medications Medication Instructions Recorded Confirmed aspirin 81 mg tablet,delayed 81 mg PO QAM 01/02/19 12/15/22 release Medical Marijuana Card 1 dose PO UD PRN CHRONIC PAIN 07/11/19 12/15/22 epinephrine 0.3 mg/0.3 mL 0.3 mg IM UD PRN Allergic Reaction 07/11/19 12/15/22 injection, auto-injector (EpiPen) diclofenac sodium 1 % topical gel 2 g topical QID PRN Pain 02/08/21 12/15/22 hydroxyzine HCl 50 mg tablet 50 mg PO HS 02/08/21 12/15/22 escitalopram oxalate 10 mg tablet 15 mg PO QAM 06/02/21 12/15/22 (Lexapro) baclofen 10 mg tablet 10 mg PO TID 01/26/22 12/15/22 methocarbamol 500 mg tablet 500 mg PO TID 08/04/22 12/15/22 Previous Rx's Medication Instructions Recorded buspirone 15 mg tablet 30 mg PO BID #60 tabs 02/26/21 icosapent ethyl 1 gram capsule 2 g PO BID #120 caps 03/01/22 (Vascepa) rimegepant 75 mg disintegrating 75 mg PO Q OTHER DAY PRN migraine 03/04/22 tablet (Nurtec ODT) headache #14 tabs CPAP Supplies #1 ea 05/27/22 spironolactone 50 mg tablet 50 mg PO DAILY #90 tabs 07/28/22 carvedilol 6.25 mg tablet (Coreg) 6.25 mg PO BID #60 tabs 07/29/22 betamethasone valerate 0.1 % 1 applic topical BID PRN skin 08/04/22 topical cream irritation #45 grams hydrochlorothiazide 25 mg tablet 25 mg PO QAM #90 tabs 08/04/22 atorvastatin 40 mg tablet 40 mg PO QPM #100 tabs 09/01/22 ketoconazole 2 % topical cream 1 applic topical BID #30 grams 09/07/22 pantoprazole 40 mg tablet,delayed 40 mg PO QAM #90 tabs 10/07/22 release (Protonix) losartan 50 mg tablet 50 mg PO BID #200 tabs 10/20/22 amlodipine 10 mg tablet 10 mg PO QAM #90 tabs 11/16/22 Results & Data (ED) Vital Signs Vital Signs - 24 hr 12/15/22 12:16 12/15/22 13:13 12/15/22 13:29 Temperature 36.0 C L Temperature Source Temporal Artery Scan Pulse Rate 70 72 Pulse Rate [Left Finger] 75 Pulse Rhythm Regular Pulse Rhythm [Left Finger] Pulse Strength Normal Pulse Strength [Left Finger] Respiratory Rate 22 16 Respiratory Effort / Characteristics Non-Labored Spontaneous Respiratory Depth Normal Respiratory Pattern Regular Blood Pressure 158/79 H Blood Pressure [Right Arm] 165/77 H Blood Pressure Mean 105 Blood Pressure Mean [Right Arm] 106 Blood Pressure Position Sitting Pulse Oximetry 100 100 Oxygen Delivery Method Room Air Sepsis Recent Fever Within 48 Hours No Sepsis New/Unexplained Change in Mental Status No Sepsis Action Taken by Nursing No Action Required 12/15/22 15:29 12/15/22 17:10 Temperature Temperature Source Pulse Rate 83 Pulse Rate [Left Finger] 85 Pulse Rhythm Pulse Rhythm [Left Finger] Regular Pulse Strength Pulse Strength [Left Finger] Normal Respiratory Rate 19 Respiratory Effort / Characteristics Non-Labored Spontaneous Respiratory Depth Normal Respiratory Pattern Regular Blood Pressure Blood Pressure [Right Arm] 148/62 H Blood Pressure Mean Blood Pressure Mean [Right Arm] 90 Blood Pressure Position Pulse Oximetry 97 Oxygen Delivery Method Room Air Sepsis Recent Fever Within 48 Hours Sepsis New/Unexplained Change in Mental Status Sepsis Action Taken by Nursing Laboratory Data 12/15/22 12:46 12/15/22 12:46 Lab Results 12/15/22 12/15/22 12/15/22 Range/Units 12:46 12:46 13:54 WBC 14.69 H (4.8-10.8) K/ul RBC 5.40 (4.70-6.10) M/uL Hgb 16.5 (14.0-18.0) g/dl Hct 44.9 (42.0-52.0) % MCV 83.1 (80.0-100.0) fL MCH 30.6 (25.0-34.0) pg MCHC 36.7 H (32.0-36.0) g/dL RDW Std Deviation 36.4 (36.4-46.3) fL RDW Coeff of Taras 12.0 (11.5-14.5) % Plt Count 444 H (130-400) K/uL MPV 10.0 (9.4-12.4) fL Immature Gran % (Auto) 0.8 % Neut % (Auto) 76.7 % Lymph % (Auto) 13.6 % [place] % (Auto) 7.6 % Eos % (Auto) 0.7 % Baso % (Auto) 0.6 % Neut # (Auto) 11.26 H (1.40-6.50) K/uL Lymph # (Auto) 2.00 (1.2-3.4) K/uL [place] # (Auto) 1.12 H (0.11-0.59) K/uL Eos # (Auto) 0.10 (0-0.50) K/uL Baso # (Auto) 0.09 (0-0.2) K/uL Immature Gran # (Auto) 0.12 (0.01-0.20) K/uL Sodium 140 (136-145) mmol/L Potassium 3.8 (3.5-5.1) mmol/L Chloride 104 (98-107) mmol/L Carbon Dioxide 20 L (21-32) mmol/L Anion Gap 16 H (3-11) BUN 17 (6-23) mg/dl Creatinine 1.07 (0.6-1.4) mg/dl Est Cr Clr Drug Dosing 110.7 ml/min Est GFR ( Amer) 89.5 ml/min Est GFR (Non-Af Amer) 77.2 ml/min BUN/Creatinine Ratio 15.9 (10-20) Glucose 129 H (70-99(Fasting)) mg/dl Calcium 10.6 H (8.6-10.3) mg/dl Total Bilirubin 0.9 (0.2-1.0) mg/dl AST 30 (13-39) U/L ALT 60 H (7-52) U/L Alkaline Phosphatase 86 (34-104) U/L Total Protein 8.2 (6.0-8.3) gm/dl Albumin 4.7 (3.4-5.0) gm/dl Globulin 3.5 (2.5-4.0) gm/dl Albumin/Globulin Ratio 1.3 (0.9-2) Lipase 40 (11-82) U/L Urine Color Dark Yellow Urine Appearance Clear (Clear) Urine pH 7.0 (4.5-7.5) Ur Specific [place] 1.027 (1.000-1.030) Urine Protein 1+ H (Negative) Urine Glucose (UA) Negative (Negative) Urine Ketones 2+ H (Negative) Urine Blood 3+ H (Negative) Urine Nitrite Negative (Negative) Urine Bilirubin Negative (Negative) Urine Urobilinogen Negative (Negative) Ur Leukocyte Esterase Negative (Negative) Urine WBC (Auto) 1-5 (0-5) /hpf Urine RBC (Auto) >30 H (0-4) /hpf U Hyaline Cast (Auto) 1-5 (0-5) /lpf U Epithel Cells (Auto) 10-20 H (0-5) /lpf Urine Bacteria (Auto) Negative (Negative) Administered Medications Discontinued Medications Hydromorphone HCl (Hydromorphone Inj 1 Mg/Ml Syringe) 1 mg IV NOW STA Stop: 12/15/22 15:33 Last Admin: 12/15/22 15:40 Dose: 1 mg Documented By: SOFI Sodium Chloride (Nss) 500 mls @ 999 mls/hr IV .Q31M STA Stop: 12/15/22 12:50 Last Admin: 12/15/22 13:13 Dose: Not Given Documented By: MNE Sodium Chloride (Nss 1000ml) 2,000 mls @ 999 mls/hr IV .Q2H1M ONE Stop: 12/15/22 14:36 Last Infusion: 12/15/22 15:30 Dose: 0 mls/hr Documented By: Admin: 12/15/22 13:06 Dose: 999 mls/hr Documented By: TONI Ketorolac Tromethamine (Ketorolac Tromethamine 15 Mg/Ml Vial) 15 mg IV NOW STA Stop: 12/15/22 12:25 Last Admin: 12/15/22 12:45 Dose: 15 mg Documented By: CRISTIAN Losartan Potassium (Losartan Potassium 50 Mg Tab) 50 mg PO ONE STA Stop: 12/15/22 17:22 Last Admin: 12/15/22 17:49 Dose: 50 mg Documented By: SOFI Morphine Sulfate (Morphine Sulfate 10 Mg/Ml Carp/Vial) 6 mg IV NOW STA Stop: 12/15/22 12:37 Last Admin: 12/15/22 13:06 Dose: 6 mg Documented By: TONI Morphine Sulfate (Morphine Sulfate 10 Mg/Ml Carp/Vial) 6 mg IV NOW STA Stop: 12/15/22 14:03 Last Admin: 12/15/22 14:10 Dose: 6 mg Documented By: KELVIN Morphine Sulfate (Morphine Sulfate 2 Mg/Ml Carp) Confirm Administered Dose 2 mg .ROUTE .STK-MED ONE Stop: 12/15/22 14:08 Last Admin: 12/15/22 14:10 Dose: Not Given Documented By: KELVIN Morphine Sulfate (Morphine Sulfate 4 Mg/Ml 1 Ml Carp\Vial) Confirm Administered Dose 4 mg .ROUTE .STK-MED ONE Stop: 12/15/22 14:08 Last Admin: 12/15/22 14:11 Dose: Not Given Documented By: KELVIN Morphine Sulfate (Morphine Sulfate 10 Mg/Ml Carp/Vial) 6 mg IV NOW STA Stop: 12/15/22 15:06 Last Admin: 12/15/22 15:42 Dose: Not Given Documented By: SOFI Ondansetron HCl (Ondansetron Inj 2 Mg/Ml 2 Ml Vial) 4 mg IV NOW STA Stop: 12/15/22 12:21 Last Admin: 12/15/22 12:45 Dose: 4 mg Documented By: CRISTIAN Ondansetron HCl (Ondansetron Inj 2 Mg/Ml 2 Ml Vial) 4 mg IV NOW STA Stop: 12/15/22 12:37 Last Admin: 12/15/22 12:36 Dose: 4 mg Documented By: KELVIN Tamsulosin HCl (Tamsulosin Hcl 0.4 Mg Cap) 0.4 mg PO NOW STA Stop: 12/15/22 15:34 Last Admin: 12/15/22 15:43 Dose: 0.4 mg Documented By: SOFI Imaging Data Radiologist's Impression: Abdomen/Pelvis CT 12/15/22 12:36 CT OF THE ABDOMEN AND PELVIS WITHOUT CONTRAST CLINICAL HISTORY: Left lower quadrant pain. COMPARISON STUDY: CT of the abdomen and pelvis May 26, 2011. TECHNIQUE: Axial images of the abdomen and pelvis were obtained without IV contrast. Images were reviewed in the axial, sagittal, and coronal planes. Automated exposure control was utilized for the study. A dose lowering technique was utilized adhering to the principles of ALARA. FINDINGS: Lung bases are unremarkable. A 4 mm proximal left ureteral calculus at or just distal to the ureteropelvic junction results in mild left hydronephrosis with perinephric stranding. No additional renal calculi are present. There is no right hydronephrosis. A 2.3 cm water attenuation left renal lesion favors a cyst. This is better depicted on prior contrast enhanced CT of May 26, 2011. Evaluation of the remainder of the abdomen and pelvis is suboptimal on this unenhanced exam. Liver, spleen, adrenal glands and pancreas are unremarkable. There is no biliary ductal dilatation status post cholecystectomy. There is no evidence for a bowel obstruction. Scattered colonic diverticula are present without evidence for acute diverticulitis. The appendix is not visualized. There are postoperative findings within the spine. Intracanalicular electrodes are present. IMPRESSION: 4 mm proximal left ureteral calculus which results in mild left hydronephrosis with perinephric and periureteral stranding. ACT 112: Negative or not required by law. Electronically signed by: Alex Rodriguez M.D. 12/15/2022 1:36 PM Discharge Plan Visit Data Chief Complaint: Abdominal Pain Stated Complaint: SWEATING, CANNOT STAND, PAIN IN LEFT SIDE ED Provider: Spenser Foster Discharge Problem: Renal colic, Abdominal pain, Hydronephrosis Forms Stand Alone Forms: [employer] Prescriptions Prescriptions: No Action icosapent ethyl [Vascepa] 1 gram capsule 2 g PO BID Qty: 120 2RF Nurtec ODT 75 mg tablet,disintegrating 75 mg PO Q OTHER DAY PRN (Reason: migraine headache) Qty: 14 2RF (DME) CPAP Supplies Misc See Rx Instructions .Route Qty: 1 0RF Rx Instructions: As directed spironolactone 50 mg tablet 50 mg PO DAILY Qty: 90 2RF carvedilol [Coreg] 6.25 mg tablet 6.25 mg PO BID Qty: 60 5RF Rx Instructions: must administer with a meal/food atorvastatin 40 mg tablet 40 mg PO QPM Qty: 100 3RF pantoprazole [Protonix] 40 mg tablet,delayed release (DR/EC) 40 mg PO QAM Qty: 90 1RF losartan 50 mg tablet 50 mg PO BID Qty: 200 3RF amlodipine 10 mg tablet 10 mg PO QAM Qty: 90 1RF methocarbamol 500 mg tablet 500 mg PO TID hydrochlorothiazide 25 mg tablet 25 mg PO QAM Qty: 90 1RF ketoconazole 2 % cream 1 applic topical BID Qty: 30 5RF buspirone 15 mg tablet 30 mg PO BID Qty: 60 3RF baclofen 10 mg tablet 10 mg PO TID betamethasone valerate 0.1 % cream 1 applic topical BID PRN (Reason: skin irritation) Qty: 45 1RF escitalopram oxalate [Lexapro] 10 mg tablet 15 mg PO QAM epinephrine [EpiPen] 0.3 mg/0.3 mL Auto-Injector 0.3 mg IM UD PRN (Reason: Allergic Reaction) Medical Marijuana Card 1 dose PO UD PRN (Reason: CHRONIC PAIN) aspirin 81 mg Tablet,Delayed Release (Dr/Ec) 81 mg PO QAM hydroxyzine HCl 50 mg Tablet 50 mg PO HS diclofenac sodium 1 % Gel 2 g TOPICAL QID PRN (Reason: Pain) Referrals Referrals: Luis Galvin CRNP [Primary Care Provider] -
[2022-12-15 13:26] LABS: Basophils # (auto) 0.09 K/uL (0-0.2); Basophils % (auto) 0.6 %; Eosinophils % (auto) 0.7 %; Hematocrit (blood only) 44.9 % (42.0-52.0); Hemoglobin 16.5 g/dl (14.0-18.0); Immature Granulocytes # (auto) 0.12 K/uL (0.01-0.20); Immature Granulocytes % (auto) 0.8 %; Lymphocytes % (auto) 13.6 %; Mean Corpuscular Hemoglobin 30.6 pg (25.0-34.0); Mean Corpuscular Hgb Conc 36.7 g/dL (32.0-36.0); Mean Corpuscular Volume 83.1 fL (80.0-100.0); Monocytes # (auto) 1.12 K/uL (0.11-0.59); Monocytes % (auto) 7.6 %; Neutrophils # (auto) 11.26 K/uL (1.40-6.50); Neutrophils % (auto) 76.7 %; Platelet Count 444 K/uL (130-400); RDW Standard Deviation 36.4 fL (36.4-46.3); White Blood Count 14.69 K/ul (4.8-10.8)
--- NOTE | 2022-12-15 13:37 | CT Scan Report ---
CT OF THE ABDOMEN AND PELVIS WITHOUT CONTRAST CLINICAL HISTORY: Left lower quadrant pain. COMPARISON STUDY: CT of the abdomen and pelvis May 26, 2011. TECHNIQUE: Axial images of the abdomen and pelvis were obtained without IV contrast. Images were revi ewed in the axial, sagittal, and coronal planes. Automated exposure control was utilized for the carmencita dy. A dose lowering technique was utilized adhering to the principles of ALARA. FINDINGS: Lung bases are unremarkable. A 4 mm proximal left ureteral calculus at or just distal to th e ureteropelvic junction results in mild left hydronephrosis with perinephric stranding. No additiona l renal calculi are present. There is no right hydronephrosis. A 2.3 cm water attenuation left renal lesion favors a cyst. This is better depicted on prior contrast enhanced CT of May 26, 2011. Evalu ation of the remainder of the abdomen and pelvis is suboptimal on this unenhanced exam. Liver, spleen , adrenal glands and pancreas are unremarkable. There is no biliary ductal dilatation status post cho lecystectomy. There is no evidence for a bowel obstruction. Scattered colonic diverticula are present without evidence for acute diverticulitis. The appendix is not visualized. There are postoperative f indings within the spine. Intracanalicular electrodes are present. IMPRESSION: 4 mm proximal left ureteral calculus which results in mild left hydronephrosis with mary nephric and periureteral stranding. ACT 112: Negative or not required by law. Electronically signed by: Alex Rodriguez M.D. 12/15/2022 1:36 PM
[2022-12-15 13:44] LABS: Albumin Globulin Ratio 1.3 (0.9-2); Albumin Level 4.7 gm/dl (3.4-5.0); BUN Creatinine Ratio 15.9 (10-20); Bilirubin,Total 0.9 mg/dl (0.2-1.0); Calcium 10.6 mg/dl (8.6-10.3); Creatinine Clr Calc Pharmacy 110.7 ml/min; Est GFR (African American) 89.5 ml/min; Est GFR (Non-African American) 77.2 ml/min; Globulin 3.5 gm/dl (2.5-4.0); Potassium 3.8 mmol/L (3.5-5.1); Total Protein 8.2 gm/dl (6.0-8.3)
[2022-12-15] MEDS ORDERED: MoRPHine SULFATE 4 MG/ML 1 ML CARP\\VIAL ONE (14:07)
[2022-12-15] MEDS ORDERED: MoRPHine SULFATE 2 MG/ML CARP ONE (14:07)
[2022-12-15 14:44] LABS: Appearance Urine Clear (Clear); Bacteria Urine Automated Negative (Negative); Bilirubin Urine Negative (Negative); Blood Urine 3+ (Negative); Color Urine Dark Yellow; Glucose Urine UA Negative (Negative); Ketones Urine 2+ (Negative); Leukocyte Esterase Urine Negative (Negative); Nitrite Urine Negative (Negative); Protein Urine 1+ (Negative); RBC Urine Automated >30 /hpf (0-4); Specific Gravity Urine 1.027 (1.000-1.030); Urobilinogen Urine Negative (Negative)
--- NOTE | 2022-12-15 15:05 | Electrocardiogram Report ---
Test Reason : Blood Pressure : / mmHG Vent. Rate : 068 BPM Atrial Rate : 068 BPM P-R Int : 160 ms QRS Dur : 086 ms QT Int : 354 ms P-R-T Axes : 053 065 047 degrees QTc Int : 376 ms Normal sinus rhythm Diffuse Minor Nonspecific T wave abnormality Abnormal ECG When compared with ECG of 15-FEB-2021 09:49, No significant change Confirmed by Ang Johnson ([id number]) on 12/15/2022 3:04:31 PM Referred By: REFERRED SELF Confirmed By:Ang Johnson
[2022-12-15] MEDS ORDERED: HYDROmorphone INJ 1 MG/ML SYRINGE IV STA (15:32)
[2022-12-15] MEDS ORDERED: TAMSULOSIN HCL 0.4 MG CAP PO STA (15:33)
--- NOTE | 2022-12-15 16:28 | Urology Consultation ---
Date of Consultation December 15, 2022 Assessment & Plan (1) Left ureteral calculus: (2) Renal colic: Plan 57yo/M who presented with severe left flank pain and found to have an obstructing 4mm proximal left ureteral stone. Afebrile and hemodynamically stable. Labs reviewed -Wbc 14.69, Creatinine 1.07. UA 3+blood, negative bacteria, negative nitrite, negative leukocytes. We discussed options for acute stone management with cystoscopy and stent placement. Ureteral stents were discussed as well as postoperative issues and pain management. He is aware that a second procedure would be needed for stone treatment. We also discussed option for max expulsion therapy. Discussed stone passage rates given size and location. We discussed possible outpatient ESWL. Risks and benefits discussed. Patient declined stent placement. He prefers trial of passage with max expulsion therapy overnight. If patient is comfortable and pain is controlled, it is reasonable for discharge home for trial of passage. If patient remains in the hospital overnight, we can reevaluate tomorrow morning. Would recommend making NPO at midnight. Continue supportive care, prn analgesics, prn antiemetics, tamsulosin. Discussed liberal hydration and straining all urine. Urology to follow. History of Present Illness History of Present Illness 57 year old male who presented to the ED for severe left flank pain with as sociated nausea vomiting. On arrival he was afebrile and hemodynamically stable. Labs show a leukocytosis of 14.69 and normal renal function. Urinalysis not suggestive of infection. CT abdomen pelvis obtained and notable for an obstructing 4 mm proximal left ureteral stone. Patient received Morphine, Dilaudid, Zofran, ketorolac, tamsulosin in the ED. He continues to have persistent left-sided pain and was admitted to medicine for further management. CT abdomen pelvis- 4 mm proximal left ureteral calculus which results in mild left hydronephrosis with perinephric and periureteral stranding. Patient examined at bedside in the ED. Awake, resting in bed on arrival. No acute distress. at bedside. Patient reports severe left flank pain with associated nausea vomiting and sweats prior to coming in. Pain has improved with IV meds. He denies fevers or chills. Voiding without issue. Denies hematuria or dysuria. He denies prior history of kidney stones. Allergies Allergy/AdvReac Type Severity Reaction Status Date / Time bee venom protein (honey bee) Allergy Severe SOB, Verified 12/15/22 13:51 swelling acetaminophen [From Percocet] AdvReac Intermediate GI Upset Verified 12/15/22 13:51 fenofibrate AdvReac Intermediate Muscle Pain Verified 12/15/22 13:51 oxycodone [From Percocet] AdvReac Intermediate GI Upset Verified 12/15/22 13:51 Home Medications Medication Instructions Recorded Confirmed Type aspirin 81 mg tablet,delayed 81 mg PO QAM 01/02/19 12/15/22 History release Medical Marijuana Card 1 dose PO UD PRN CHRONIC PAIN 07/11/19 12/15/22 History epinephrine 0.3 mg/0.3 mL 0.3 mg IM UD PRN Allergic Reaction 07/11/19 12/15/22 History injection, auto-injector (EpiPen) diclofenac sodium 1 % topical gel 2 g topical QID PRN Pain 02/08/21 12/15/22 History hydroxyzine HCl 50 mg tablet 50 mg PO HS 02/08/21 12/15/22 History buspirone 15 mg tablet 30 mg PO BID #60 tabs 02/26/21 12/15/22 Rx escitalopram oxalate 10 mg tablet 15 mg PO QAM 06/02/21 12/15/22 History (Lexapro) baclofen 10 mg tablet 10 mg PO TID 01/26/22 12/15/22 History icosapent ethyl 1 gram capsule 2 g PO BID #120 caps 03/01/22 12/15/22 Rx (Vascepa) rimegepant 75 mg disintegrating 75 mg PO Q OTHER DAY PRN migraine 03/04/22 12/15/22 Rx tablet (Nurtec ODT) headache #14 tabs CPAP Supplies #1 ea 05/27/22 09/07/22 Rx spironolactone 50 mg tablet 50 mg PO DAILY #90 tabs 07/28/22 12/15/22 Rx carvedilol 6.25 mg tablet (Coreg) 6.25 mg PO BID #60 tabs 07/29/22 12/15/22 Rx betamethasone valerate 0.1 % 1 applic topical BID PRN skin 08/04/22 12/15/22 Rx topical cream irritation #45 grams hydrochlorothiazide 25 mg tablet 25 mg PO QAM #90 tabs 08/04/22 12/15/22 Rx methocarbamol 500 mg tablet 500 mg PO TID 08/04/22 12/15/22 History atorvastatin 40 mg tablet 40 mg PO QPM #100 tabs 09/01/22 12/15/22 Rx ketoconazole 2 % topical cream 1 applic topical BID #30 grams 09/07/22 12/15/22 Rx pantoprazole 40 mg tablet,delayed 40 mg PO QAM #90 tabs 10/07/22 12/15/22 Rx release (Protonix) losartan 50 mg tablet 50 mg PO BID #200 tabs 10/20/22 12/15/22 Rx amlodipine 10 mg tablet 10 mg PO QAM #90 tabs 11/16/22 12/15/22 Rx Patient History Medical History Adverse clinical event associated with anesthesia Anxiety Degenerative disc disease Depression GERD (gastroesophageal reflux disease) Hyperlipidemia Hypertension Hypertriglyceridemia without hypercholesterolemia Impingement syndrome, shoulder, left Migraine Nail deformity Neuropathy of right lower extremity Obesity Obstructive sleep apnea Osteoarthritis Pre-diabetes Resistant hypertension Sacroiliitis Spinal stenosis, lumbar region with neurogenic claudication Surgical History History of appendectomy History of carpal tunnel release History of cholecystectomy History of colonoscopy History of eye surgery History of tonsillectomy Hx of foot surgery Previous back surgery SI (sacroiliac) joint dysfunction Family History Father Cancer Hypertension Colorectal cancer, Onset Age: 60 Myocardial infarction, Onset Age: 50 Prostate cancer, Onset Age: 60 Heart disease Mother Hypertension Diabetes Brother Hypertension Sister Hypertension Denies family history of Ovarian cancer Breast cancer Social History Smoking Status: Never smoker Second Hand Exposure: No; Do You Dip or Chew Tobacco: No; Hx Alcohol Use: Yes Alcohol type: beer Hx Substance Use: Yes Last Used Substance Other:: medical marijuanna vape Substance Use Type Other:: medical card > vapes daily Preferred Language: Japanese Communication Ability: Effective Visual Impairment: No Limitations Hearing Ability: Hard of Hearing Rigging Supervisor Required: No Beliefs That Will Affect Care: None marital status: Current Living Situation: Spouse current occupational status: disabled 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 Feels Safe at Home: Yes Childhood Exposure to Second-Hand Smoke: Yes Diet: regular caffeine: Yes (coffee) during the past year weight has: increased > 10 lbs Dental Care, Regularly: Yes Physical Activity Frequency: Other Physical Activity Frequency Comment: limited by physical condition Seatbelt Use: always Sunscreen Use: Yes Assistive Devices: Glasses Review of Systems Review of Systems: All systems reviewed & are unremarkable except as noted in HPI & below Physical Exam Constitutional: well developed and well nourished; no acute distress Eyes: PERRL, conjunctivae normal, anicteric sclerae ENMT: external ear and nose normal, oropharynx normal Neck: normal visual inspection Respiratory: normal respiratory effort; no respiratory distress and no labored breathing Musculoskeletal: Head/Neck/Chest: normocephalic Skin: No visible rashes or lesions to exposed skin areas Neurologic: moves all extremities and awake Psychiatric: A+Ox3, euthymic affect Results & Data Vital Signs (Past 12 Hours) Vital Signs Temp Pulse Pulse Resp BP BP Pulse Ox 12/15/22 15:29 85 19 148/62 H 97 12/15/22 13:29 75 16 165/77 H 100 12/15/22 13:13 72 12/15/22 12:16 36.0 C L 70 22 158/79 H 100 O2 Del Method 12/15/22 15:29 Room Air 12/15/22 13:29 12/15/22 13:13 12/15/22 12:16 Room Air PG Care Time/CCT Total # of Minutes Spent Total Time Spent with Patient: Total time spent is greater than 50% in coordination of care (as documented) at patient's floor/unit and/or counseling patient: Coding Level of Care Code 42379 IN/OBS CONSULT LVL 3,45M Diagnoses Left ureteral calculus N20.1 Renal colic N23
[2022-12-15] MEDS ORDERED: LOSARTAN POTASSIUM 50 MG TAB PO STA (17:21)
[2022-12-15] MEDS ORDERED: amLODIPine BESYLATE 5 MG TAB PO STA (17:22)
[2022-12-15] MEDS ORDERED: HYDROmorphone INJ 0.5 MG/0.5 ML SYR IV PRN ×2 (19:08)
[2022-12-15] MEDS ORDERED: ACETAMINOPHEN 325 MG TAB PO PRN (19:08)
--- NOTE | 2022-12-15 19:55 | History & Physical Report ---
Date of Service December 15, 2022 Assessment & Plan (1) Left ureteral calculus: Plan: Tamsulosin 0.4mg PO given in ER - although studies show no significant benefit for stones < 5mm therefore will defer further doses Continue IV hydration with NSS @ 125ml/hr overnight Filter all urine Pain relief with acetaminophen 1st line, Dilaudid 0.25-0.5 mg IV second line Consult urology (2) Hydronephrosis: (3) Hypertension: Plan: Did not take his usual medications this morning. Will give losartan and smlodipine now then restart his usual anti-hypertensives holding HCTZ and spironolactone to avoid hypovolemia. (4) GERD (gastroesophageal reflux disease): Plan: Continue pantoprazole (5) Obstructive sleep apnea: Plan: May use own CPAP Plan VTE Prophylaxis - low risk Diet - regular, NPO after midnight Disposition - admit to med/surg Admission and Anticipated Discharge Date Admission Date: December 15, 2022 History of Present Illness Chief Complaint: Left sided abdominal pain Primary Care Provider: MYRIAM Ruiz Bob Bains is a 57 year old male who presents to the ER with left sided abdominal pain. Started around 9am this morning. Severity 10/10, currently 0/10 after Dilaudid just given. Associated diaphoresis, nausea and vomiting. No change in bowels. No fever, dysuria or change in urine smell/color. Does not currently feel that he has passed the stone but now the Dilaudid has kicked in after multiple rounds of morphine the pain has subsided. Allergies Allergy/AdvReac Type Severity Reaction Status Date / Time bee venom protein (honey bee) Allergy Severe SOB, Verified 12/15/22 13:51 swelling acetaminophen [From Percocet] AdvReac Intermediate GI Upset Verified 12/15/22 13:51 fenofibrate AdvReac Intermediate Muscle Pain Verified 12/15/22 13:51 oxycodone [From Percocet] AdvReac Intermediate GI Upset Verified 12/15/22 13:51 Home Medications Medication Instructions Recorded Confirmed Type aspirin 81 mg tablet,delayed 81 mg PO QAM 01/02/19 12/15/22 History release Medical Marijuana Card 1 dose PO UD PRN CHRONIC PAIN 07/11/19 12/15/22 History epinephrine 0.3 mg/0.3 mL 0.3 mg IM UD PRN Allergic Reaction 07/11/19 12/15/22 History injection, auto-injector (EpiPen) diclofenac sodium 1 % topical gel 2 g topical QID PRN Pain 02/08/21 12/15/22 History hydroxyzine HCl 50 mg tablet 50 mg PO HS 02/08/21 12/15/22 History buspirone 15 mg tablet 30 mg PO BID #60 tabs 02/26/21 12/15/22 Rx escitalopram oxalate 10 mg tablet 15 mg PO QAM 06/02/21 12/15/22 History (Lexapro) baclofen 10 mg tablet 10 mg PO TID 01/26/22 12/15/22 History icosapent ethyl 1 gram capsule 2 g PO BID #120 caps 03/01/22 12/15/22 Rx (Vascepa) rimegepant 75 mg disintegrating 75 mg PO Q OTHER DAY PRN migraine 03/04/22 12/15/22 Rx tablet (Nurtec ODT) headache #14 tabs CPAP Supplies #1 ea 05/27/22 09/07/22 Rx spironolactone 50 mg tablet 50 mg PO DAILY #90 tabs 07/28/22 12/15/22 Rx carvedilol 6.25 mg tablet (Coreg) 6.25 mg PO BID #60 tabs 07/29/22 12/15/22 Rx betamethasone valerate 0.1 % 1 applic topical BID PRN skin 08/04/22 12/15/22 Rx topical cream irritation #45 grams hydrochlorothiazide 25 mg tablet 25 mg PO QAM #90 tabs 08/04/22 12/15/22 Rx methocarbamol 500 mg tablet 500 mg PO TID 08/04/22 12/15/22 History atorvastatin 40 mg tablet 40 mg PO QPM #100 tabs 09/01/22 12/15/22 Rx ketoconazole 2 % topical cream 1 applic topical BID #30 grams 09/07/22 12/15/22 Rx pantoprazole 40 mg tablet,delayed 40 mg PO QAM #90 tabs 10/07/22 12/15/22 Rx release (Protonix) losartan 50 mg tablet 50 mg PO BID #200 tabs 10/20/22 12/15/22 Rx amlodipine 10 mg tablet 10 mg PO QAM #90 tabs 11/16/22 12/15/22 Rx Past Med/Surg History Medical History Adverse clinical event associated with anesthesia Anxiety Degenerative disc disease Depression GERD (gastroesophageal reflux disease) Hyperlipidemia Hypertension Hypertriglyceridemia without hypercholesterolemia Impingement syndrome, shoulder, left Migraine Nail deformity Neuropathy of right lower extremity Obesity Obstructive sleep apnea Osteoarthritis Pre-diabetes Resistant hypertension Sacroiliitis Spinal stenosis, lumbar region with neurogenic claudication Surgical History History of appendectomy History of carpal tunnel release History of cholecystectomy History of colonoscopy History of eye surgery History of tonsillectomy Hx of foot surgery Previous back surgery SI (sacroiliac) joint dysfunction Family History Father Cancer Hypertension Colorectal cancer, Onset Age: 60 Myocardial infarction, Onset Age: 50 Prostate cancer, Onset Age: 60 Heart disease Mother Hypertension Diabetes Brother Hypertension Sister Hypertension Denies family history of Ovarian cancer Breast cancer Social History Smoking Status: Never smoker Second Hand Exposure: No; Do You Dip or Chew Tobacco: No; Hx Alcohol Use: No Hx Substance Use: Yes Last Used Substance Other:: medical marijuanna vape Substance Use Type Other:: medical card > vapes daily Preferred Language: Polish Communication Ability: Effective Visual Impairment: No Limitations Hearing Ability: Hard of Hearing Mine Expert Required: No Beliefs That Will Affect Care: None marital status: Current Living Situation: Spouse current occupational status: disabled current occupation: lieutenant at [employer] Feels Safe at Home: Yes Safety Concerns: Feels Safe At This Time Childhood Exposure to Second-Hand Smoke: Yes Diet: regular caffeine: Yes (coffee) during the past year weight has: increased > 10 lbs Dental Care, Regularly: Yes Physical Activity Frequency: Other Physical Activity Frequency Comment: limited by physical condition Seatbelt Use: always Sunscreen Use: Yes Assistive Devices: CPAP, Glasses and Oxygen - at Night Review of Systems Review of Systems: All systems reviewed & are unremarkable except as noted in HPI & below Physical Exam Constitutional: WD/WN, vitals as above Eyes: + anicteric sclerae; normal pupil size ENMT: external ear and nose normal, oropharynx normal Respiratory: normal respiratory effort, lungs clear to auscultation Cardiovascular: RRR, no murmur, no edema Gastrointestinal (Abdomen): Percussion/Palpation: + abdomen tender (left sided) and abdomen soft; no guarding and abdomen not rigid Skin: no rashes, warm and dry Psychiatric: A+Ox3, euthymic affect Genitourinary: no CVA tenderness Results & Data Results & Data Vital Signs (Past 12 Hours) Vital Signs Temp Pulse Pulse Resp BP BP Pulse Ox 12/15/22 19:21 37 C 71 18 149/88 H 98 12/15/22 17:10 83 12/15/22 15:29 85 19 148/62 H 97 12/15/22 13:29 75 16 165/77 H 100 12/15/22 13:13 72 12/15/22 12:16 36.0 C L 70 22 158/79 H 100 O2 Del Method 12/15/22 19:21 Room Air 12/15/22 17:10 12/15/22 15:29 Room Air 12/15/22 13:29 12/15/22 13:13 12/15/22 12:16 Room Air Laboratory Results Abnormal lab results 12/15/22 12/15/22 12/15/22 Range/Units 12:46 12:46 13:54 WBC 14.69 H (4.8-10.8) K/ul MCHC 36.7 H (32.0-36.0) g/dL Plt Count 444 H (130-400) K/uL Neut # (Auto) 11.26 H (1.40-6.50) K/uL [place] # (Auto) 1.12 H (0.11-0.59) K/uL Carbon Dioxide 20 L (21-32) mmol/L Anion Gap 16 H (3-11) Glucose 129 H (70-99(Fasting)) mg/dl Calcium 10.6 H (8.6-10.3) mg/dl ALT 60 H (7-52) U/L Urine Protein 1+ H (Negative) Urine Ketones 2+ H (Negative) Urine Blood 3+ H (Negative) Urine RBC (Auto) >30 H (0-4) /hpf U Epithel Cells (Auto) 10-20 H (0-5) /lpf Diagnostic Findings CT OF THE ABDOMEN AND PELVIS WITHOUT CONTRAST CLINICAL HISTORY: Left lower quadrant pain. COMPARISON STUDY: CT of the abdomen and pelvis May 26, 2011. TECHNIQUE: Axial images of the abdomen and pelvis were obtained without IV contrast. Images were reviewed in the axial, sagittal, and coronal planes. Automated exposure control was utilized for the study. A dose lowering technique was utilized adhering to the principles of ALARA. FINDINGS: Lung bases are unremarkable. A 4 mm proximal left ureteral calculus at or just distal to the ureteropelvic junction results in mild left hydronephrosis with perinephric stranding. No additional renal calculi are present. There is no right hydronephrosis. A 2.3 cm water attenuation left renal lesion favors a cyst. This is better depicted on prior contrast enhanced CT of May 26, 2011. Evaluation of the remainder of the abdomen and pelvis is suboptimal on this unenhanced exam. Liver, spleen, adrenal glands and pancreas are unremarkable. There is no biliary ductal dilatation status post cholecystectomy. There is no evidence for a bowel obstruction. Scattered colonic diverticula are present without evidence for acute diverticulitis. The appendix is not visualized. There are postoperative findings within the spine. Intracanalicular electrodes are present. IMPRESSION: 4 mm proximal left ureteral calculus which results in mild left hydronephrosis with perinephric and periureteral stranding. Medications Administered ER Medications Given: Ondansetron 4mg IV NSS 500ml bolus Toradol 15mg IV NSS 2L bolus Morphine 6mg IV Ondansetron 4mg IV Morphine 6mg IV Dilaudid 1mg IV ECG Rate (beats per minute): 68 Rhythm: normal sinus Findings: no acute ischemic change Comparison ECG Date: from (Jan 26, 2021) Change: no significant change Code Status & VTE Plan Code Status Full VTE Prophylaxis Plan VTE Prophylaxis will be ordered: No PG Care Time/CCT Total # of Minutes Spent Total Time Spent with Patient: Total time spent is greater than 50% in coordination of care (as documented) at patient's floor/unit and/or counseling patient: Coding Level of Care Code 43110 INT INP/OBS CARE 2/55MIN Diagnoses Left ureteral calculus N20.1 Hydronephrosis N13.30 Hypertension I10 GERD (gastroesophageal reflux disease) K21.9 Obstructive sleep apnea G47.33
[2022-12-15] MEDS: METHOCARBAMOL 500 MG TABLET PO SCH (20:37)
[2022-12-15] MEDS: busPIRone 15 MG TAB PO SCH (20:37)
[2022-12-15] MEDS: carvediloL 6.25 MG TAB PO SCH (20:38)
[2022-12-15] MEDS: LOSARTAN POTASSIUM 50 MG TAB PO SCH (20:38)
[2022-12-15] MEDS: SODIUM CHLORIDE 0.9% 1000ML 1,000 ML IV SCH (20:46)
[2022-12-15] MEDS ORDERED: ATORVASTATIN 40 MG TAB PO SCH (21:00)
[2022-12-15] MEDS ORDERED: hydrOXYzine HCl 25 MG TAB PO SCH (21:00)
[2022-12-16] MEDS: SODIUM CHLORIDE 0.9% 1000ML 1,000 ML IV SCH (04:12)
[2022-12-16] MEDS: carvediloL 6.25 MG TAB PO SCH (08:01)
[2022-12-16] MEDS: METHOCARBAMOL 500 MG TABLET PO SCH ×2 (08:02→13:26)
[2022-12-16] MEDS: LOSARTAN POTASSIUM 50 MG TAB PO SCH (08:02)
[2022-12-16] MEDS: busPIRone 15 MG TAB PO SCH (08:02)
--- NOTE | 2022-12-16 08:10 | Hospitalist Progress Note ---
Date of Service December 16, 2022 Assessment & Plan (1) Left ureteral calculus: Plan: Tamsulosin 0.4mg PO given in ER - although studies show no significant benefit for stones < 5mm therefore will defer further doses Continue IV hydration with NSS @ 125ml/hr overnight Filter all urine Pain relief with acetaminophen 1st line, Dilaudid 0.25-0.5 mg IV second line Consult urology (2) Hydronephrosis: (3) Hypertension: Plan: Did not take his usual medications this morning. Will give losartan and smlodipine now then restart his usual anti-hypertensives holding HCTZ and spironolactone to avoid hypovolemia. (4) GERD (gastroesophageal reflux disease): Plan: Continue pantoprazole (5) Obstructive sleep apnea: Plan: May use own CPAP Plan VTE Prophylaxis - low risk Diet - regular, NPO after midnight Disposition - admit to med/surg Admission and Anticipated Discharge Date Admission Date: December 15, 2022 Subjective Eval this morning around 11am. Resting in bed with CPAP on. Reports feeling great, not having any pain. Denies having passed stone yet. Wanting to avoid stent placement at this time given planned cruise next week but as discussed if not passing could consider stent today and out next week prior to procedure. He seems ok with this plan and will follow up this afternoon to see if passed/or if ok w/ proceeding for stent possibly if still ok w/ Urology. No fever/chills, chest pain, shortness of breath, abdominal pain or nausea at present. Questions/concerns addressed at this time. Results & Data Results & Data Vital Signs (Past 12 Hours) Vital Signs Temp Pulse Pulse Resp BP Pulse Ox O2 Del Method 12/16/22 08:00 62 12/16/22 07:32 36.9 C 58 L 16 138/64 98 Room Air Laboratory Results 12/16/22 12/16/22 12/15/22 Range/Units 07:03 07:03 13:54 WBC Pending (4.8-10.8) K/ul RBC Pending (4.70-6.10) M/uL Hgb Pending (14.0-18.0) g/dl Hct Pending (42.0-52.0) % MCV Pending (80.0-100.0) fL MCH Pending (25.0-34.0) pg MCHC Pending (32.0-36.0) g/dL RDW Std Deviation (36.4-46.3) fL RDW Coeff of Taras (11.5-14.5) % Plt Count Pending (130-400) K/uL MPV (9.4-12.4) fL Immature Gran % (Auto) % Neut % (Auto) % Lymph % (Auto) % [place] % (Auto) % Eos % (Auto) % Baso % (Auto) % Neut # (Auto) (1.40-6.50) K/uL Lymph # (Auto) (1.2-3.4) K/uL [place] # (Auto) (0.11-0.59) K/uL Eos # (Auto) (0-0.50) K/uL Baso # (Auto) (0-0.2) K/uL Immature Gran # (Auto) (0.01-0.20) K/uL Sodium Pending (136-145) mmol/L Potassium Pending (3.5-5.1) mmol/L Chloride Pending (98-107) mmol/L Carbon Dioxide Pending (21-32) mmol/L Anion Gap Pending (3-11) BUN Pending (6-23) mg/dl Creatinine Pending (0.6-1.4) mg/dl Est Cr Clr Drug Dosing Pending ml/min Est GFR ( Amer) Pending ml/min Est GFR (Non-Af Amer) Pending ml/min BUN/Creatinine Ratio Pending (10-20) Glucose Pending (70-99(Fasting)) mg/dl Calcium Pending (8.6-10.3) mg/dl Total Bilirubin (0.2-1.0) mg/dl AST (13-39) U/L ALT (7-52) U/L Alkaline Phosphatase (34-104) U/L Total Protein (6.0-8.3) gm/dl Albumin (3.4-5.0) gm/dl Globulin (2.5-4.0) gm/dl Albumin/Globulin Ratio (0.9-2) Lipase (11-82) U/L Urine Color Dark Yellow Urine Appearance Clear (Clear) Urine pH 7.0 (4.5-7.5) Ur Specific [place] 1.027 (1.000-1.030) Urine Protein 1+ H (Negative) Urine Glucose (UA) Negative (Negative) Urine Ketones 2+ H (Negative) Urine Blood 3+ H (Negative) Urine Nitrite Negative (Negative) Urine Bilirubin Negative (Negative) Urine Urobilinogen Negative (Negative) Ur Leukocyte Esterase Negative (Negative) Urine WBC (Auto) 1-5 (0-5) /hpf Urine RBC (Auto) >30 H (0-4) /hpf U Hyaline Cast (Auto) 1-5 (0-5) /lpf U Epithel Cells (Auto) 10-20 H (0-5) /lpf Urine Bacteria (Auto) Negative (Negative) 12/15/22 12/15/22 Range/Units 12:46 12:46 WBC 14.69 H (4.8-10.8) K/ul RBC 5.40 (4.70-6.10) M/uL Hgb 16.5 (14.0-18.0) g/dl Hct 44.9 (42.0-52.0) % MCV 83.1 (80.0-100.0) fL MCH 30.6 (25.0-34.0) pg MCHC 36.7 H (32.0-36.0) g/dL RDW Std Deviation 36.4 (36.4-46.3) fL RDW Coeff of Taras 12.0 (11.5-14.5) % Plt Count 444 H (130-400) K/uL MPV 10.0 (9.4-12.4) fL Immature Gran % (Auto) 0.8 % Neut % (Auto) 76.7 % Lymph % (Auto) 13.6 % [place] % (Auto) 7.6 % Eos % (Auto) 0.7 % Baso % (Auto) 0.6 % Neut # (Auto) 11.26 H (1.40-6.50) K/uL Lymph # (Auto) 2.00 (1.2-3.4) K/uL [place] # (Auto) 1.12 H (0.11-0.59) K/uL Eos # (Auto) 0.10 (0-0.50) K/uL Baso # (Auto) 0.09 (0-0.2) K/uL Immature Gran # (Auto) 0.12 (0.01-0.20) K/uL Sodium 140 (136-145) mmol/L Potassium 3.8 (3.5-5.1) mmol/L Chloride 104 (98-107) mmol/L Carbon Dioxide 20 L (21-32) mmol/L Anion Gap 16 H (3-11) BUN 17 (6-23) mg/dl Creatinine 1.07 (0.6-1.4) mg/dl Est Cr Clr Drug Dosing 110.7 ml/min Est GFR ( Amer) 89.5 ml/min Est GFR (Non-Af Amer) 77.2 ml/min BUN/Creatinine Ratio 15.9 (10-20) Glucose 129 H (70-99(Fasting)) mg/dl Calcium 10.6 H (8.6-10.3) mg/dl Total Bilirubin 0.9 (0.2-1.0) mg/dl AST 30 (13-39) U/L ALT 60 H (7-52) U/L Alkaline Phosphatase 86 (34-104) U/L Total Protein 8.2 (6.0-8.3) gm/dl Albumin 4.7 (3.4-5.0) gm/dl Globulin 3.5 (2.5-4.0) gm/dl Albumin/Globulin Ratio 1.3 (0.9-2) Lipase 40 (11-82) U/L Urine Color Urine Appearance (Clear) Urine pH (4.5-7.5) Ur Specific [place] (1.000-1.030) Urine Protein (Negative) Urine Glucose (UA) (Negative) Urine Ketones (Negative) Urine Blood (Negative) Urine Nitrite (Negative) Urine Bilirubin (Negative) Urine Urobilinogen (Negative) Ur Leukocyte Esterase (Negative) Urine WBC (Auto) (0-5) /hpf Urine RBC (Auto) (0-4) /hpf U Hyaline Cast (Auto) (0-5) /lpf U Epithel Cells (Auto) (0-5) /lpf Urine Bacteria (Auto) (Negative) Diagnostic Findings Abdomen/Pelvis CT 12/15/22 12:36 CT OF THE ABDOMEN AND PELVIS WITHOUT CONTRAST CLINICAL HISTORY: Left lower quadrant pain. COMPARISON STUDY: CT of the abdomen and pelvis May 26, 2011. TECHNIQUE: Axial images of the abdomen and pelvis were obtained without IV contrast. Images were reviewed in the axial, sagittal, and coronal planes. Automated exposure control was utilized for the study. A dose lowering technique was utilized adhering to the principles of ALARA. FINDINGS: Lung bases are unremarkable. A 4 mm proximal left ureteral calculus at or just distal to the ureteropelvic junction results in mild left hydronephrosis with perinephric stranding. No additional renal calculi are present. There is no right hydronephrosis. A 2.3 cm water attenuation left renal lesion favors a cyst. This is better depicted on prior contrast enhanced CT of May 26, 2011. Evaluation of the remainder of the abdomen and pelvis is suboptimal on this unenhanced exam. Liver, spleen, adrenal glands and pancreas are unremarkable. There is no biliary ductal dilatation status post cholecystectomy. There is no evidence for a bowel obstruction. Scattered colonic diverticula are present without evidence for acute diverticulitis. The appendix is not visualized. There are postoperative findings within the spine. Intracanalicular electrodes are present. IMPRESSION: 4 mm proximal left ureteral calculus which results in mild left hydronephrosis with perinephric and periureteral stranding. ACT 112: Negative or not required by law. Electronically signed by: Alex Rodriguez M.D. 12/15/2022 1:36 PM PG Care Time/CCT Total # of Minutes Spent Total Time Spent with Patient: Total time spent is greater than 50% in coordination of care (as documented) at patient's floor/unit and/or counseling patient: Coding Diagnoses Left ureteral calculus N20.1 Hydronephrosis N13.30 Hypertension I10 GERD (gastroesophageal reflux disease) K21.9 Obstructive sleep apnea G47.33
[2022-12-16 08:29] LABS: BUN Creatinine Ratio 15.9 (10-20); Calcium 8.6 mg/dl (8.6-10.3); Creatinine Clr Calc Pharmacy 134.6 ml/min; Est GFR (African American) 111.3 ml/min; Potassium 3.7 mmol/L (3.5-5.1)
[2022-12-16] MEDS ORDERED: ESCITALOPRAM OXALATE 10 MG TAB PO SCH (09:00)
[2022-12-16] MEDS ORDERED: PANTOprazole 40 MG TAB PO SCH (09:00)
[2022-12-16] MEDS ORDERED: amLODIPine BESYLATE 5 MG TAB PO SCH (09:00)
[2022-12-16 09:40] LABS: Hematocrit (blood only) 39.6 % (42.0-52.0); Hemoglobin 14.1 g/dl (14.0-18.0); Mean Corpuscular Hemoglobin 30.6 pg (25.0-34.0); Mean Corpuscular Hgb Conc 35.6 g/dL (32.0-36.0); Mean Corpuscular Volume 85.9 fL (80.0-100.0); Mean Platelet Volume 9.9 fL (9.4-12.4); Platelet Count 287 K/uL (130-400); RDW Coefficient of Variation 12.5 % (11.5-14.5); RDW Standard Deviation 38.5 fL (36.4-46.3); Red Blood Count 4.61 M/uL (4.70-6.10); White Blood Count 8.99 K/ul (4.8-10.8)
--- NOTE | 2022-12-16 11:14 | XRay Report ---
KUB CLINICAL HISTORY: Nephrolithiasis. FINDINGS: 3 AP supine abdominal radiographs are correlated with abdominal CT dated 12/15/2022. There i s a nonobstructed abdominal bowel gas pattern. Cholecystectomy clips are seen in the right upper quad rant. No calcifications are identified projecting over either kidney or along the course of the urete rs. The 4 mm left ureteral stone seen on yesterday's CT scan is not clearly visualized by x-ray. The skeletal structures are osteopenic and appear intact. Postoperative and spondylotic change is noted i n the lumbar spine. There are right iliac bolts in place. A neurostimulator device projects of the ri ght lower quadrant with leads extending into the central spinal canal. IMPRESSION: There is no radiographic evidence of nephrolithiasis on today's examination. Specificall y, the left ureteral stent seen on yesterday's CT scan is not visualized by x-ray. Electronically signed by: Oneal Silverman M.D. 12/16/2022 11:13 AM
--- NOTE | 2022-12-16 12:25 | Urology Progress Note ---
Date of Service December 16, 2022 Assessment & Plan (1) Left ureteral calculus: (2) Renal colic: Plan 57yo/M who presented with severe left flank pain and found to have an obstructing 4mm proximal left ureteral stone. Afebrile and hemodynamically stable. Labs reviewed -Wbc 14.69- 8.99 today, Creatinine 0.88. UA without evidence of infection. No reported pain at present. Denies stone passage overnight. No stone visualized on KUB today. We discussed options for acute stone management with cystoscopy and stent placement, possible stone treatment. Ureteral stents were discussed as well as postoperative issues and pain management. He is aware that a second procedure may be needed for stone treatment. We also discussed option for max expulsion therapy. Discussed stone passage rates given size and location. We discussed possible outpatient ESWL. Risks and benefits discussed. Patient declined stent placement. He prefers trial of passage with max expulsion therapy. No acute intervention planned today. Continue supportive care, prn analgesics, prn antiemetics, tamsulosin. Discussed liberal hydration and straining all urine. Will arrange outpatient follow-up with urology service. Reviewed in detail signs/symptoms that would warrant return to the hospital, patient verbalized an understanding. Admission and Anticipated Discharge Date Admission Date: December 15, 2022 Subjective Patient examined at bedside this AM. Awake, resting in bed on arrival. No acute distress. Overall feeling well, no reported pain at present. He denies any stone passage. Denies fevers, chills, nausea, vomiting. Voiding without issue. Denies hematuria or dysuria. Has been NPO. Review of Systems Constitutional: as per Subjective / HPI Gastrointestinal: as per Subjective / HPI Genitourinary: + as per Subjective / HPI Physical Exam Constitutional: well developed and well nourished; no acute distress Respiratory: normal respiratory effort; no respiratory distress and no labored breathing Musculoskeletal: Head/Neck/Chest: normocephalic Skin: No visible rashes or lesions to exposed skin areas Neurologic: moves all extremities and awake Psychiatric: A+Ox3, euthymic affect Results & Data Vital Signs (Past 12 Hours) Vital Signs Temp Pulse Pulse Resp BP Pulse Ox O2 Del Method 12/16/22 08:00 62 12/16/22 07:32 36.9 C 58 L 16 138/64 98 Room Air PG Care Time/CCT Total # of Minutes Spent Total Time Spent with Patient: Total time spent is greater than 50% in coordination of care (as documented) at patient's floor/unit and/or counseling patient: Coding Level of Care Code 40391 SUB INP/OBS CARE 2/35MIN Diagnoses Left ureteral calculus N20.1 Renal colic N23
--- NOTE | 2022-12-16 13:17 | Discharge Summary ---
Date of Service December 16, 2022 Admission HPI Per Admitting Provider Bob Bains is a 57 year old male who presents to the ER with left sided abdominal pain. Started around 9am this morning. Severity 10/10, currently 0/10 after Dilaudid just given. Associated diaphoresis, nausea and vomiting. No change in bowels. No fever, dysuria or change in urine smell/color. Does not currently feel that he has passed the stone but now the Dilaudid has kicked in after multiple rounds of morphine the pain has subsided. Admission Exam Per Admitting Provider Constitutional: WD/WN, vitals as above Eyes: + anicteric sclerae; normal pupil size ENMT: external ear and nose normal, oropharynx normal Respiratory: normal respiratory effort, lungs clear to auscultation Cardiovascular: RRR, no murmur, no edema Gastrointestinal (Abdomen): Percussion/Palpation: + abdomen tender (left sided) and abdomen soft; no guarding and abdomen not rigid Skin: no rashes, warm and dry Psychiatric: A+Ox3, euthymic affect Genitourinary: no CVA tenderness Principal Diagnosis Left Ureteral Calculus Discharge Exam Constitutional WD/WN, vitals as above resting in bed with CPAP in place Eyes + anicteric sclerae; normal pupil size ENMT external ear and nose normal, oropharynx normal Respiratory normal respiratory effort, lungs clear to auscultation Cardiovascular RRR, no murmur, no edema Gastrointestinal (Abdomen) Percussion/Palpation: abdomen soft; abdomen nontender, no guarding and abdomen not rigid Skin no rashes, warm and dry Psychiatric A+Ox3, euthymic affect Genitourinary no CVA tenderness Discharge Data Allergies Allergy/AdvReac Type Severity Reaction Status Date / Time bee venom protein (honey bee) Allergy Severe SOB, Verified 12/15/22 13:51 swelling acetaminophen [From Percocet] AdvReac Intermediate GI Upset Verified 12/15/22 13:51 fenofibrate AdvReac Intermediate Muscle Pain Verified 12/15/22 13:51 oxycodone [From Percocet] AdvReac Intermediate GI Upset Verified 12/15/22 13:51 Consultations 12/15/22 15:06 ED Decision to Admit Stat 12/15/22 15:34 Consult Urology Stat Ordered Studies Abdomen/Pelvis CT 12/15/22 12:36 CT OF THE ABDOMEN AND PELVIS WITHOUT CONTRAST CLINICAL HISTORY: Left lower quadrant pain. COMPARISON STUDY: CT of the abdomen and pelvis May 26, 2011. TECHNIQUE: Axial images of the abdomen and pelvis were obtained without IV contrast. Images were reviewed in the axial, sagittal, and coronal planes. Automated exposure control was utilized for the study. A dose lowering technique was utilized adhering to the principles of ALARA. FINDINGS: Lung bases are unremarkable. A 4 mm proximal left ureteral calculus at or just distal to the ureteropelvic junction results in mild left hydronephrosis with perinephric stranding. No additional renal calculi are present. There is no right hydronephrosis. A 2.3 cm water attenuation left renal lesion favors a cyst. This is better depicted on prior contrast enhanced CT of May 26, 2011. Evaluation of the remainder of the abdomen and pelvis is suboptimal on this unenhanced exam. Liver, spleen, adrenal glands and pancreas are unremarkable. There is no biliary ductal dilatation status post cholecystectomy. There is no evidence for a bowel obstruction. Scattered colonic diverticula are present without evidence for acute diverticulitis. The appendix is not visualized. There are postoperative findings within the spine. Intracanalicular electrodes are present. IMPRESSION: 4 mm proximal left ureteral calculus which results in mild left hy dronephrosis with perinephric and periureteral stranding. ACT 112: Negative or not required by law. Electronically signed by: Alex Rodriguez M.D. 12/15/2022 1:36 PM KUB X-Ray 12/16/22 08:09 KUB CLINICAL HISTORY: Nephrolithiasis. FINDINGS: 3 AP supine abdominal radiographs are correlated with abdominal CT dated 12/15/2022. There is a nonobstructed abdominal bowel gas pattern. Cholecystectomy clips are seen in the right upper quadrant. No calcifications are identified projecting over either kidney or along the course of the ureters. The 4 mm left ureteral stone seen on yesterday's CT scan is not clearly visualized by x-ray. The skeletal structures are osteopenic and appear intact. Postoperative and spondylotic change is noted in the lumbar spine. There are right iliac bolts in place. A neurostimulator device projects of the right lower quadrant with leads extending into the central spinal canal. IMPRESSION: There is no radiographic evidence of nephrolithiasis on today's examination. Specifically, the left ureteral stent seen on yesterday's CT scan is not visualized by x-ray. Electronically signed by: Oneal Silverman M.D. 12/16/2022 11:13 AM Hospital Course (1) Left ureteral calculus: Presented with nausea/vomiting but no fevers/chills, L sided flank pain Imaging w/ 4 mm proximal left ureteral calculus which results in mild left hydronephrosis with perinephric and periureteral stranding IVF provided, pain control, NPO at midnight, flomax Urology consulted Pain reported feeling well, denied passage of stone. Wanting to avoid need for stent KUB obtained which did not show the stone prior seen. NO having any abdominal pain or nausea at present. WBC normalized on repeat off abx, suspect from reactive from n/v prior to admission Discussed w/ patient and urology and patient prefers discharge home on conservative treatment. Will plan dc w/ flomax, zofran, as well as short course oxycodone if needed F/u Urology Of note, prior Vit D level in system in patient who came in w/ Ca 10.6, normalized with holding his HCTZ and providing IVF however was LOW at 15.5 --> start PO Vit D at discharge recommended. F/u PCP and nephro as seen in the past (2) Hydronephrosis: no CVA tenderness, no fevers, WBC normalized on repeat and do not suspect any infection at present F/u Urology as above at discharge (3) Hypertension: BP stable, 138/64, HCTZ and spironolactone on hold but continued losartan/amlodipine Repeat kidney function stable, can resume meds at discharge Encourage hydration/PO intake for passage of stone (4) GERD (gastroesophageal reflux disease): Chronic, stable Continued pantoprazole (5) Obstructive sleep apnea: Utilized home CPAP in room while inpatient (6) Vitamin D deficiency: Ca 10.6 on admission, ?dehydration. Also on HCTZ Vitamin D level in system from july but not on supplementation -- was low at 15.5 Started PO supp at d/c to prevent elevations from low Vit D level/hypercalcemia, f/u PCP If not corrected on repeat, rec obtaining PTH levels. No prior hx stones Total Time Total Time Spent Total Time Spent (In Minutes): 45 Discharge Plan Discharge Items Patient Disposition: Home - Self-Care Reason For Visit: URETEROLITHIASIS Discharge Diagnosis: LEFT sided kidney stone Goals: You have been hospitalized for an acute medical problem. During your stay at [facility], we have made an effort to correct the problem that brought you to the hospital while keeping you as comfortable as possible. Medications were used to bring your condition under control and your discharge instructions will include directions for any medications you should take after leaving the hospital. Please make sure you see your Primary Care Provider as part of your follow up plan. Activity: Resume your previous activity Non-emergency contact: Primary Care Provider and Urologist Call non-emergency contact if: you have any medication questions, your symptoms worsen, your pain is not controlled, your pain is worsening and you have a fever Follow-up/Referrals: Luis Galvin CRNP [Primary Care Provider] - (Office will call patient with an appointment date and time) Dereje Ontiveros MD [Physician] - (Office will call patient with appointment date and time) Diet: Heart Healthy Addtl Attending Provider Instructions: You have been hospitalized for nausea/vomiting and found to have a kidney stone. We started you on Flomax and IVF and pain control and repeat imaging doesn't note stone however given you have not passed this it could be obscured by gas. We consulted urology and you had declined a stent however pain much improved and we can consider conservative treatment with flomax as well as short course of zofran as needed for nausea and oxycodone for pain. You should return to the ER with any worsening pain/fever/chills but should push oral fluids at discharge to help with expulsion of stone. You should have follow up with urology at discharge for ongoing management as needed. You did have elevated calcium levels which have improved, but also contribute to kidney stones. Please discuss with your primary care provider about considering reducing dose of hydrochlorothiazide as this can contribute however I looked at prior Vitamin D levels in july in our system which were quite low and can cause our calcium levels to be increased because of this. We don't want to hold this HCTZ at this time given you are also on two medications that can cause potassium to be elevated and this helps to prevent this as well but your levels have been quite stable. I have started you on oral vitamin D at discharge and hopefully this will help prevent elevations in calcium but you should follow up with primary care in the next 7-10 days to monitor your progress after discharge and can further discuss. It has been a pleasure being a part of the medical team providing for you while you have been in the hospital. Take care! Pending Studies at Discharge: No Stand-Alone Forms: My [facility], Smoking Cessation Medications and DC Order Prescriptions: New tamsulosin 0.4 mg capsule 0.4 mg PO HS Qty: 14 0RF ondansetron 4 mg tablet,disintegrating 4 mg PO Q8H PRN (Reason: nausea and vomiting) 4 Days Qty: 7 0RF oxycodone 5 mg capsule 5 mg PO Q6H PRN (Reason: pain) Qty: 7 0RF cholecalciferol (vitamin D3) [Vitamin D3] 50 mcg (2,000 unit) tablet 50 mcg PO DAILY 30 Days Qty: 30 0RF Continued icosapent ethyl [Vascepa] 1 gram capsule 2 g PO BID Qty: 120 2RF Nurtec ODT 75 mg tablet,disintegrating 75 mg PO Q OTHER DAY PRN (Reason: migraine headache) Qty: 14 2RF (DME) CPAP Supplies Misc See Rx Instructions .Route Qty: 1 0RF Rx Instructions: As directed spironolactone 50 mg tablet 50 mg PO DAILY Qty: 90 2RF carvedilol [Coreg] 6.25 mg tablet 6.25 mg PO BID Qty: 60 5RF Rx Instructions: must administer with a meal/food atorvastatin 40 mg tablet 40 mg PO QPM Qty: 100 3RF pantoprazole [Protonix] 40 mg tablet,delayed release (DR/EC) 40 mg PO QAM Qty: 90 1RF losartan 50 mg tablet 50 mg PO BID Qty: 200 3RF amlodipine 10 mg tablet 10 mg PO QAM Qty: 90 1RF methocarbamol 500 mg tablet 500 mg PO TID hydrochlorothiazide 25 mg tablet 25 mg PO QAM Qty: 90 1RF ketoconazole 2 % cream 1 applic topical BID Qty: 30 5RF buspirone 15 mg tablet 30 mg PO BID Qty: 60 3RF baclofen 10 mg tablet 10 mg PO TID betamethasone valerate 0.1 % cream 1 applic topical BID PRN (Reason: skin irritation) Qty: 45 1RF escitalopram oxalate [Lexapro] 10 mg tablet 15 mg PO QAM epinephrine [EpiPen] 0.3 mg/0.3 mL Auto-Injector 0.3 mg IM UD PRN (Reason: Allergic Reaction) Medical Marijuana Card 1 dose PO UD PRN (Reason: CHRONIC PAIN) aspirin 81 mg Tablet,Delayed Release (Dr/Ec) 81 mg PO QAM hydroxyzine HCl 50 mg Tablet 50 mg PO HS diclofenac sodium 1 % Gel 2 g TOPICAL QID PRN (Reason: Pain) Discharge Orders: Discharge Order (Routine); Ordered 12/16/22 Ordered By: Sheryl Cunha Admission Data Admit Date/Time: 12/15/22 16:48 Attending Provider: Geo Sumner Admit Provider: Geo Sumner Primary Care Provider: Luis Galvin Other Providers: Geo Sumner ; Dereje Ontiveros Other Interventions: Discharge Summary Assessment (RN) Last Done: 12/16/22 13:32 Supervising Physician Co-Signing Physician Notes The patient was not seen by me. The chart was reviewed. Case discussed with RED Yap. Agree with assessment and plan Coding Level of Care Code 84231 INP/OBS DISCH >30 MIN Diagnoses Left ureteral calculus N20.1 Hydronephrosis N13.30 Hypertension I10 GERD (gastroesophageal reflux disease) K21.9 Obstructive sleep apnea G47.33 Vitamin D deficiency E55.9
== END 2022-12-16 14:14 | disposition home or self-care (01) ==
LOC: ED 12:06 → INTOOBSV 16:48 → 3W 16:48